=== PATIENT | female | born 1930 | race Caucasian/White ===

== ENCOUNTER 2019-03-11 21:09 | Inpatient (IN) | payer OTHER, MEDICARE ==
--- OUTSIDE RECORDS SUMMARY | 2019-03-11 21:11 | XMS REPORT ---
:1930 [facility] Address [address] [place] [address] [address]. [address] [place] [address] Care Team Providers Name Role Phone Unavailable Unavailable Unavailable Payers Payer Name Policy Type Policy Number Effective Date Expiration Date Problems This patient has no known problems. Allergies, Adverse Reactions, Alerts Allergy Name Allergy Status Severity Reaction(s) Onset Inactive Treating Comments Type Date Date Clinician Sulfa DA Active U 2008-04 (Sulfonamide 2-21 Antibiotics) 00:00: 00 No Known DA Active [place] 2008-04 Intolerances 2-21 00:00: 00 Medications This patient has no known medications.
[2019-03-11 21:53] LABS: Protime INR 0.95
[2019-03-11 21:55] LABS: Absolute Lymphocytes (CBC) 1.8 K/uL (0.7-4.9); Basophils % 0.4 % (0-1.3); Hematocrit 35.4 % (36.0-45.0); Lymphocytes % 14.2 % (15.3-44.8); MPV 8.6 fL (7.6-11.3); RBC Red Blood Cell Count 3.78 M/uL (3.86-4.86)
[2019-03-11 22:20] LABS: ALT/SGPT 28 U/L (12-78); AST/SGOT 38 U/L (15-37); Albumin 3.3 g/dL (3.4-5.0); Alkaline Phosphatase 48 U/L (45-117); BUN Blood Urea Nitrogen 23 mg/dL (7-18); Bicarbonate 27 mmol/L (21-32); Bilirubin Direct < 0.1 mg/dL (0-0.2); Bilirubin Total 0.2 mg/dL (0.2-1.0); Glucose Level 166 mg/dL (74-106); Lipase 222 U/L (73-393); Magnesium 2.2 mg/dL (1.8-2.4); Potassium 4.3 mmol/L (3.5-5.1); Protein, Total 6.7 g/dL (6.4-8.2); Sodium Level 141 mmol/L (136-145); Troponin (Emerg Dept Use Only) < 0.02 ng/mL (0.0-0.045)
--- NOTE | 2019-03-11 22:41 | RAD REPORT ---
EXAM DESCRIPTION: Haydee Single View03/11/2019 10:07 pm CLINICAL HISTORY: Abdominal pain COMPARISON: none FINDINGS: A few areas of scarring or subsegmental atelectasis are present within the right upper lob e The left lung appears clear The heart is normal size
[2019-03-11 23:46] LABS: Urine Blood TRACE (NEG); Urine Glucose NEGATIVE (NEG); Urine Protein NEGATIVE (NEG); Urine Specific Gravity 1.025 (1.005-1.030)
[2019-03-11 23:46] LABS: Urine Bacteria >50 /HPF (<20); Urine Culture Reflex Order REFLEXED
[2019-03-11 23:47] LABS: Urine RBC <5 /HPF (NONE SEEN)
[2019-03-12] MEDS ORDERED: CEFTRIAXONE/SWI 1gm 1 GM/10 ML SYR ONE (01:27)
--- NOTE | 2019-03-12 01:53 | ER ---
Nurse's Notes [facility] Name: Yamileth Gibbons Age: 88 yrs Sex: Female : 1930 Arrival Date: 03/11/2019 Time: 21:15 Bed 15 Private MD: Diagnosis: acute left flank pain;hydroureter;hydronephrosis Presentation: 03/11 21:00 Presenting complaint: EMS states: Reported feeling n/v and severe abdominal and back ea pain. Family reports possible syncopal episode. Transition of care: patient was not received from another setting of care. Onset of symptoms was March 11, 2019. Risk Assessment: Do you want to hurt yourself or someone else? Patient reports no desire to harm self or others. Initial Sepsis Screen: Does the patient meet any 2 criteria? No. Patient's initial sepsis screen is negative. Does the patient have a suspected source of infection? No. Patient's initial sepsis screen is negative. Care prior to arrival: 22 G to left AC, Toradol 25 mg, Phenergan 12.5 mg. 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 - Social history:: Smoking status: Patient/guardian denies using tobacco. - Ebola Screening: : No symptoms or risks identified at this time. - Family history:: not pertinent. - History obtained from: daughter. Screenin:26 Abuse screen: Denies threats or abuse. Nutritional screening: No deficits noted. ea Tuberculosis screening: No symptoms or risk factors identified. Fall Risk None identified. Assessment: 21:00 General: Appears in no apparent distress. Behavior is calm, cooperative, appropriate ea for age. Pain: Complains of pain in back. Neuro: Level of Consciousness is awake, alert, obeys commands, Oriented to person, place. Cardiovascular: Patient's skin is warm and dry. Respiratory: Airway is patent Respiratory effort is even, unlabored, Respiratory pattern is regular, symmetrical. GI: Bowel sounds present X 4 quads. Abd is soft and non tender X 4 quads. Derm: Skin is fragile, Skin is dry, Skin is pale. Musculoskeletal: Circulation, motion, and sensation intact. 22:00 Reassessment: Patient and/or family updated on plan of care and expected duration. Pain ea level reassessed. Patient is alert, oriented x 3, equal unlabored respirations, skin warm/dry/pink. 23:00 Reassessment: Patient and/or family updated on plan of care and expected duration. Pain ea level reassessed. Patient is alert, oriented x 3, equal unlabored respirations, skin warm/dry/pink. 03/12 00:00 Reassessment: Pt resting with eyes closed, respirations even and unlabored. Chest ea expansions even and symmetrical. Daughter remains at bedside. 02:40 Reassessment: Patient and/or family updated on plan of care and expected duration. Pain ea level reassessed. Patient is alert, oriented x 3, equal unlabored respirations, skin warm/dry/pink. Hospitalist at bedside updating pt on plan of care. Vital Signs: 03/11 21:40 BP 114 / 45; Pulse 72; Resp 18; Temp 98.7; Pulse Ox 99% on R/A; Weight 58.97 kg; Height ea 5 ft. (152.40 cm); 03/12 00:26 BP 130 / 64; Pulse 74; Resp 18; Temp 98.9(O); Pulse Ox 99% ; ea 01:00 BP 135 / 72; Pulse 74; Resp 18; Pulse Ox 100% ; ea 02:00 BP 130 / 86; Pulse 85; Resp 18; Pulse Ox 97% ; ea 02:55 Temp 98.8; ea 03:30 BP 128 / 78; Pulse 78; Resp 18; Pulse Ox 99% ; ea 04:15 BP 130 / 78; Pulse 72; Resp 18; Temp 98.1; Pulse Ox 99% on R/A; ea 03/11 21:40 Body Mass Index 25.39 (58.97 kg, 152.40 cm) ea ED Course: 03/11 21:00 Patient has correct armband on for positive identification. Bed in low position. Call ea light in reach. Side rails up X2. Adult w/ patient. 21:00 Maintain EMS IV. Dressing intact. Good blood return noted. Site clean \T\ dry. Gauge \T\ ea site: 22G left AC. 21:15 Patient arrived in ED. ds1 21:19 Vladimir Patterson MD is Attending Physician. wa 21:26 Triage completed. ea 21:27 Arm band placed on right wrist. 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 21:45 Farrah Briseno RN is Primary Nurse. ea 22:02 XRAY Chest (1 view) In Process Unspecified. EDMS 22:08 CT Abd/Pelvis - Without Contrast In Process Unspecified. EDMS 23:26 Straight cath inserted, using sterile technique, 16 Fr. Specimen obtained. Returned ea cloudy urine. Patient tolerated well. 1211 01:50 Michelle Majano MD is Hospitalizing Provider. wa 02:41 No provider procedures requiring assistance completed. Patient admitted, IV remains in ea place. Administered Medications: 01:35 Drug: Rocephin - (cefTRIAXone) 1 grams Route: IVPB; Infused Over: 30 mins; Site: left ea antecubital; 03:54 Drug: Zofran 4 mg Route: IVP; Site: left antecubital; ea 04:10 Follow up: Response: No adverse reaction ea Outcome: 01:52 Decision to Hospitalize by Provider. wa 02:41 Instructed on the need for admit. ea 04:27 Admitted to Med/surg accompanied by tech, via stretcher, with chart, Report called to tom Robles RN 04:27 Condition: stable 04:28 Patient left the ED. ea Signatures: Dispatcher [employer] [facility] Linda Celis ds1 Farrah Briseno RN RN ea Appiah, William, MD MD nc
--- NOTE | 2019-03-12 01:53 | EDPHYS ---
Physician Documentation [facility] Name: Yamileth Gibbons Age: 88 yrs Sex: Female : 1930 Arrival Date: 03/11/2019 Time: 21:15 Bed 15 Private MD: ED Physician Vladimir Patterson HPI: 03/12 01:41 This 88 yrs old Female presents to ER via EMS with complaints of Abdominal wa Pain, Back Pain. 01:41 The patient presents with pain that is acute, with no known mechanism of injury. The wa symptoms are located in the left flank. 02:51 Onset: The symptoms/episode began/occurred today. The pain radiates to the left lower wa abd. Associated signs and symptoms: Pertinent positives: nausea, vomiting, Pertinent negatives: chest pain, fever, headache, hematuria. The problem was sustained from unknown cause. Modifying factors: The patient symptoms are alleviated by nothing, the patient symptoms are aggravated by nothing. Severity of symptoms: At their worst the symptoms were moderate, in the emergency department the symptoms have improved, moderately. The patient has experienced a previous episode, and the symptoms today are exactly the same, dx'd with UTI and "kidney blockage". The patient has not recently seen a physician. 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 - Social history:: Smoking status: Patient/guardian denies using tobacco. - Ebola Screening: : No symptoms or risks identified at this time. - Family history:: not pertinent. - History obtained from: daughter. ROS: 03/12 02:53 Constitutional: Negative for fever, chills, and weight loss, Eyes: Negative for injury, wa pain, redness, and discharge, ENT: Negative for injury, pain, and discharge, Neck: Negative for injury, pain, and swelling, Cardiovascular: Negative for chest pain, palpitations, and edema, Respiratory: Negative for shortness of breath, cough, wheezing, and pleuritic chest pain, MS/Extremity: Negative for injury and deformity, Skin: Negative for injury, rash, and discoloration, Neuro: Negative for headache, weakness, numbness, tingling, and seizure, Psych: Negative for depression, anxiety, suicide ideation, homicidal ideation, and hallucinations. Abdomen/GI: Positive for abdominal pain, nausea and vomiting, of the left flank, Negative for diarrhea. Back: Positive for flank pain, on the left. : Positive for flank pain, of the left flank, Negative for urinary symptoms, urinary frequency, burning with urination. Exam: 02:55 Constitutional: This is a well developed, well nourished patient who is awake, alert, wa and in no acute distress. Head/Face: Normocephalic, atraumatic. Eyes: Pupils equal round and reactive to light, extra-ocular motions intact. Lids and lashes normal. Conjunctiva and sclera are non-icteric and not injected. Cornea within normal limits. Periorbital areas with no swelling, redness, or edema. ENT: Nares patent. No nasal discharge, no septal abnormalities noted. Tympanic membranes are normal and external auditory canals are clear. Oropharynx with no redness, swelling, or masses, exudates, or evidence of obstruction, uvula midline. Mucous membranes moist. Neck: Trachea midline, no thyromegaly or masses palpated, and no cervical lymphadenopathy. Supple, full range of motion without nuchal rigidity, or vertebral point tenderness. No Meningismus. Chest/axilla: Normal chest wall appearance and motion. Nontender with no deformity. No lesions are appreciated. Cardiovascular: Regular rate and rhythm with a normal S1 and S2. No gallops, murmurs, or rubs. Normal PMI, no JVD. No pulse deficits. Respiratory: Lungs have equal breath sounds bilaterally, clear to auscultation and percussion. No rales, rhonchi or wheezes noted. No increased work of breathing, no retractions or nasal flaring. Skin: Warm, dry with normal turgor. Normal color with no rashes, no lesions, and no evidence of cellulitis. MS/ Extremity: Pulses equal, no cyanosis. Neurovascular intact. Full, normal range of motion. Neuro: Awake and alert, GCS 15, oriented to person, place, time, and situation. Cranial nerves II-XII grossly intact. Motor strength 5/5 in all extremities. Sensory grossly intact. Cerebellar exam normal. Normal gait. Psych: Awake, alert, with orientation to person, place and time. Behavior, mood, and affect are within normal limits. 02:55 Abdomen/GI: Inspection: abdomen appears normal, Bowel sounds: normal, in all quadrants, Palpation: abdomen is soft and non-tender, in all quadrants. 02:55 Back: pain, that is moderate, CVA tenderness, is absent. 02:55 : CVA tenderness, is absent. Vital Signs: 03/11 21:40 BP 114 / 45; Pulse 72; Resp 18; Temp 98.7; Pulse Ox 99% on R/A; Weight 58.97 kg; Height ea 5 ft. (152.40 cm); 03/12 00:26 BP 130 / 64; Pulse 74; Resp 18; Temp 98.9(O); Pulse Ox 99% ; ea 01:00 BP 135 / 72; Pulse 74; Resp 18; Pulse Ox 100% ; ea 02:00 BP 130 / 86; Pulse 85; Resp 18; Pulse Ox 97% ; ea 02:55 Temp 98.8; ea 03:30 BP 128 / 78; Pulse 78; Resp 18; Pulse Ox 99% ; ea 04:15 BP 130 / 78; Pulse 72; Resp 18; Temp 98.1; Pulse Ox 99% on R/A; ea 03/11 21:40 Body Mass Index 25.39 (58.97 kg, 152.40 cm) ea MDM: 03/11 21:19 Patient medically screened. or 03/12 02:55 Differential diagnosis: r/o pyelo. kidney stones. obstruction. give meds IV. labs. CT. wa reassess. Data reviewed: vital signs, nurses notes. 02:57 Test interpretation: by ED physician or midlevel provider: labs noted for hyperglycemia wa at 166. elevated BUN at 23. WBC elevated at 13. UA noted positive nitrite. >50 bacteria.. Test interpretation: by ED physician or midlevel provider: CT shows L side hydronephrosis and hydroureter.. Response to treatment: the patient's symptoms have markedly improved after treatment. 03/11 21:31 Order name: Basic Metabolic Panel; Complete Time: 03/11 21: Order name: CBC with Diff; Complete Time: 03/11 21:31 Order name: Hepatic Function; Complete Time: 03/11 21:31 Order name: Lipase; Complete Time: 03/11 21: Order name: Magnesium; Complete Time: 03/11 21:31 Order name: PT-INR; Complete Time: 01:24 or 03/11 21:31 Order name: Troponin (emerg Dept Use Only); Complete Time: :24 or 03/11 21:31 Order name: XRAY Chest (1 view); Complete Time: 01:24 or 03/11 21:32 Order name: CT Abd/Pelvis - Without Contrast or 03/11 21:32 Order name: Urine Microscopic Only; Complete Time: 01:24 or 03/11 23:34 Order name: Urine Dipstick--Ancillary (enter results); Complete Time: 01:23 [facility] 03/11 23:52 Order name: Urine Culture [facility] 03/12 01:45 Order name: Urine Culture or 03/12 04:27 Order name: CBC with Automated Diff [facility] 03/11 21:31 Order name: IV Saline Lock; Complete Time: 21:32 or 03/11 21:31 Order name: Labs collected and sent; Complete Time: 21:32 or 03/11 21:31 Order name: EKG; Complete Time: :32 or 03/11 21:31 Order name: Cardiac monitoring; Complete Time: 21:32 or 03/11 21:31 Order name: EKG - Nurse/Tech; Complete Time: 22:23 or 03/11 21:31 Order name: O2 Per Protocol; Complete Time: :32 or 03/11 21:31 Order name: O2 Sat Monitoring; Complete Time: 21:32 or 03/11 21:32 Order name: Urine Dipstick-Ancillary (obtain specimen); Complete Time: 01:35 or Administered Medications: 01:35 Drug: Rocephin - (cefTRIAXone) 1 grams Route: IVPB; Infused Over: 30 mins; Site: left ea antecubital; 03:54 Drug: Zofran 4 mg Route: IVP; Site: left antecubital; ea 04:10 Follow up: Response: No adverse reaction ea Disposition: 03/12/19 01:52 Hospitalization ordered by Michelle Majano for Inpatient Admission. Preliminary diagnosis are acute left flank pain, hydroureter, hydronephrosis. - Bed requested for Telemetry/MedSurg (Inpatient). - Status is Inpatient Admission. ea - Condition is Stable. - Problem is new. - Symptoms have improved. UTI on Admission? Yes Signatures: Dispatcher [employer] EDMS Krystin Blankenship RN RN mw Antunez, Elena, RN RN ea Appiah, William, MD MD wa Corrections: (The following items were deleted from the chart) 02:37 01:52 Hospitalization Ordered by Michelle Majano MD for Inpatient Admission. Preliminary mw diagnosis is acute left flank pain; hydroureter; hydronephrosis. Bed requested for Telemetry/MedSurg (Inpatient). Status is Inpatient Admission. Condition is Stable. Problem is new. Symptoms have improved. UTI on Admission? Yes. or 04:28 02:37 03/12/2019 01:52 Hospitalization Ordered by Michelle Majano MD for Inpatient ea Admission. Preliminary diagnosis is acute left flank pain; hydroureter; hydronephrosis. Bed requested for Telemetry/MedSurg (Inpatient). Status is Inpatient Admission. Condition is Stable. Problem is new. Symptoms have improved. UTI on Admission? Yes.
[2019-03-12] MEDS ORDERED: ACETAMINOPHEN 500 MG TAB PO PRN (03:37)
[2019-03-12] MEDS ORDERED: POLYETHYL GLY 3350 17 GM/DOSE PO PRN (03:37)
[2019-03-12] MEDS ORDERED: HYDROCODONE/APAP 5/325 MG TAB PO PRN (03:37)
[2019-03-12] MEDS ORDERED: ONDANSETRON 4 MG/2 ML VIAL IV PRN (03:37)
--- NOTE | 2019-03-12 03:44 | P.HP ---
Certification for Inpatient Patient admitted to: Observation With expected LOS: <2 Midnights Patient will require the following post-hospital care: None Practitioner: I am a practitioner with admitting privileges, knowledge of patient current condition, hospital course, and medical plan of care. Services: Services provided to patient in accordance with Admission requirements found in Title 42 Section 412.3 of the Code of Federal Regulations Patient History Date of Service: 03/12/19 Reason for admission: LEFT BACK PAIN History of Present Illness: Yamileth Gibbons is a 88yoF w/ pmhx of CVA and OA who presents w/ intractable unrelenting left flank pain x 24hrs. she reports similar episodes but this episode is different based on duration of pain. she reports N/V and change in color of her urine. she denies blood in her urine. on ED sign out, she is reported to have left hydronephrosis and urology was consulted - Dr. Eubanks per sign out. she denies tobacco/drugs/etoh/BATISTA/CP/SOB/fever, chills, dizziness. she lives alone, is ambulatory, and completes all her ADLs alone. Allergies No Known Allergies Allergy (Unverified 03/12/19 03:09) - Past Medical/Surgical History -: CVA -: ARTHRITIS - Social History Smoking Status: Never smoker Alcohol use: No CD- Drugs: No Review of Systems General: Weakness Eyes: Unremarkable ENT: Unremarkable Respiratory: Unremarkable Cardiovascular: Unremarkable Gastrointestinal: Nausea, Vomiting Genitourinary: As per HPI Musculoskeletal: Neck Pain Integumentary: Unremarkable Neurological: Unremarkable (+left flank pain ) Physical Examination - Physical Exam General: Alert, In no apparent distress, Oriented x3, Cooperative, Other ( appears uncomfortable, but not ill or toxic. a/ox3, NAD, conversational, interactive, frail, slender, well groomed. ) HEENT: EOMI Neck: Supple Respiratory: Clear to auscultation bilaterally, Normal air movement Cardiovascular: No edema, Regular rate/rhythm Capillary refill: <2 Seconds Gastrointestinal: Normal bowel sounds, Soft and benign, Distended (mildly) Musculoskeletal: No clubbing, No swelling Neurological: Other (gait not tested) External genitalia: Deferred Rectal: Deferred - Studies Laboratory Data (last 24 hrs) 03/11/19 21:15: PT 11.2, INR 0.95 03/11/19 21:15: WBC 13.0 H, Hgb 11.7 L, Hct 35.4 L, Plt Count 230 03/11/19 21:15: Sodium 141, Potassium 4.3, BUN 23 H, Creatinine 0.95, Glucose 166 H, Magnesium 2.2, Total Bilirubin 0.2, AST 38 H, ALT 28, Alkaline Phosphatase 48, Lipase 222 Assessment and Plan - Plan 88 yoF admitted w/ left hydronephrosis and UTI (+nitrite and bacteria) obtain ur cx c/w IVF and IV abx NPO except ice chips trend WBC and obtain a1c, tsh, lipid panel obtain procal awaiting CT report - imaging completed urology consulted in the ED- will f/u w/ POC stent, nephrostomy tube, etc uti plan as above monitor I/Os DVT ppx - SCDs - Advance Directives Does patient have a Living Will: Yes Does patient have a Durable POA for Healthcare: No
[2019-03-12 04:13] LABS: Absolute Lymphocytes (CBC) 1.4 K/uL (0.7-4.9); Basophils % 0.1 % (0-1.3); Lymphocytes % 8.3 % (15.3-44.8); MPV 8.1 fL (7.6-11.3); RBC Red Blood Cell Count 3.89 M/uL (3.86-4.86)
[2019-03-12 04:26] LABS: Protime INR 1.02
[2019-03-12] MEDS: NA CHLORIDE 0.9% 1,000 ML IV SCH ×2 (04:30→15:59)
[2019-03-12 04:42] VITALS: BMI 22.4
[2019-03-12 05:24] LABS: Albumin 3.6 g/dL (3.4-5.0); Bilirubin Total 0.4 mg/dL (0.2-1.0); Magnesium 2.7 mg/dL (1.8-2.4); Potassium 4.8 mmol/L (3.5-5.1); Protein, Total 7.3 g/dL (6.4-8.2); Thyroid Stimulating Hormone 0.79 uIU/mL (0.360-3.740)
[2019-03-12] MEDS: MORPHINE 2 MG/ML SYR IV PRN ×2 (05:32→23:41)
--- NOTE | 2019-03-12 06:01 | EKG ---
Test Date: 2019-03-11 Test Time: 21:41:56 Director Medical: LAYO MEASUREMENT RESULTS: Intervals: Rate: 71 VT: 134 QRSD: 74 QT: 376 QTc: 408 Thompson: P: 56 VT: 134 QRS: 62 T: 73 INTERPRETIVE STATEMENTS: Normal sinus rhythm Normal ECG No previous ECG available for comparison Electronically Signed On 03-12-19 06:00:35 CAKE ICER by Yossi James
[2019-03-12] MEDS: CEFTRIAXONE/SWI 1gm 1 GM/10 ML SYR IV SCH (09:25)
[2019-03-12] MEDS: DOCUSATE NA 100 MG CAP PO SCH ×2 (09:25→21:27)
--- NOTE | 2019-03-12 10:49 | RAD REPORT ---
EXAM DESCRIPTION: CT - Abdomen Pelvis Wo Contrast - 03/12/2019 5:58 am CLINICAL HISTORY: L side abd/flank pain COMPARISON: None Available. TECHNIQUE: CT of the abdomen and pelvis without IV contrast. Evaluation of the solid organs and vasc ulature is suboptimal due to lack of IV contrast. FINDINGS: Lung Bases: Coarse calcification in the left lung base may represent a granuloma. Bones: Degenerative endplate spondylosis and facet arthropathy throughout the spine. Abdomen: Liver: The liver has normal size and density. Gallbladder: Prior cholecystectomy. Spleen, Pancreas, and Adrenal Glands: The spleen, pancreas, and adrenal glands are unremarkable. 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 No obstructing roshni al calculus definitely identified. Cystic structure involving the interpolar right kidney which is in completely evaluated due to lack of IV contrast. Nonobstructing left renal calculus. Vasculature: Aortoiliac atherosclerosis. IVC is unremarkable. Stomach: The stomach and duodenum have normal course. Other: No free intraperitoneal air. Moderate fat-containing ventral hernia. No free fluid or lympha denopathy. Pelvis: Bladder: Tiny foci of air in the urinary bladder. No urinary bladder wall thickening identified. Bowel: No dilated loops of large or small bowel. Scattered diverticula of the colon. Large amount s tool throughout the colon. Appendix: Normal appendix. Pelvis: Uterus is not enlarged. Tiny fat-containing left inguinal hernia. IMPRESSION: 1. 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 No obstructing calculi identifi ed. No evidence of lower pole moiety hydronephrosis. 2. Punctate nonobstructing left nephrolithiasis. 3. Diverticulosis without evidence of acute diverticulitis. 4. Punctate foci of air in the urinary bladder may be related to recent catheterization. Urinary blad jamie is otherwise unremarkable. This exam was performed according to our departmental dose-optimization program, which includes autom ated exposure control, adjustment of the mA and/or kV according to patient size and/or use of iterati ve reconstruction technique. 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 The interpreting radiologist is f ully responsible for the content of the report.
--- NOTE | 2019-03-12 19:37 | CON ---
88-year-old female with past medical history of stroke, osteoarthritis, came with intractable unrelenting left flank pain x24 hours. She reports similar episodes of this before, approximately 4-5 years ago when she was admitted for IV antibiotics, got better. She went home. 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 In looking at the CT scan, it does look like the left upper pole is hydronephrotic, most likely nonfunctional, probably has been that way chronically. My concern was if this was infected or not. First, we talked about doing a cysto stent to drain the kidney, but once I got more information that this is a duplicated system with most likely a nonfunctional upper pole moiety and that this episode of infection happened before and she got better on IV antibiotics, I decided best to go ahead and treat her with IV antibiotics for 2-3 days until the culture comes back and then send her home. We will go ahead and place a Ocampo catheter, however, in the bladder to drain the infection out. 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 She has had previous vaginal closure surgery for a cystocele. She denies any tobacco socially. She denies tobacco, smoking, alcohol use. Review of Systems: She denies fevers or chills or dizziness. She lives at home. 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 Does all her ADLs on her own, very active for age. Allergies: NO KNOWN DRUG ALLERGIES. Past Medical History: CVA, arthritis. Social History: Never smoked. Alcohol use none. Drug use none. Review of Systems: General: Some weakness. Unremarkable for age. Physical Examination: Vital Signs: She had a low-grade temperature today 100 plus. General: She is alert, oriented. Family very supportive. Her son and daughter in the room and her son-in-law. HEENT: Atraumatic. Normocephalic. Neck: Supple. Respiratory: Clear. Cardiovascular: S1, S2. Capillary refill less than 2 seconds. Gastrointestinal: Normal. Musculoskeletal: Normal. Neurologic: Normal. : External genitalia deferred. Lab Studies: PT 11, INR 0.9. White count was elevated today 16.5, up from 13, 000 yesterday. H and H 12 and 36, platelet count 230. Coagulation as mentioned. Chemistry: Sodium 141, potassium 4.8, chloride 108, carbon dioxide 28, BUN 22, creatinine 0.97, GFR 54, glucose 135, magnesium 2.7, AST 52. 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 Question was whether the upper pole moiety is infected versus the lower pole moiety. However, based on her history of having the same similar symptoms for 5 years ago, intravenous antibiotics to care for everything. She has not had one in 4-5 years. We wish to go ahead and try the same for her. We will place a Ocampo catheter to drain the infected urine out of her bladder, remove that in a few days. She will go home once the culture comes back. May also do a renal scan to document the duplicated collecting system as well as possible assess the function of the left lower pole moiety for any possible pyelonephritis. BON/AHMET Voice ID: [id number] Report ID: [id number] SONJA
[2019-03-13] MEDS: NA CHLORIDE 0.9% 1,000 ML IV SCH ×2 (02:09→14:10)
[2019-03-13] MEDS ORDERED: FUROSEMIDE 40 MG/4 ML VIAL ONE (05:56)
[2019-03-13] MEDS: CEFTRIAXONE/SWI 1gm 1 GM/10 ML SYR IV SCH (07:58)
[2019-03-13] MEDS: DOCUSATE NA 100 MG CAP PO SCH ×2 (07:58→22:08)
[2019-03-13] MEDS ORDERED: HYDROCODONE/APAP 7.5/325 MG TAB PO PRN (08:52)
[2019-03-13] MEDS ORDERED: TRAMADOL HCL 50 MG TAB PO PRN (08:52)
--- NOTE | 2019-03-13 08:57 | RAD REPORT ---
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 COMPARISON: Abdomen Pelvis Wo Contrast dated 03/11/2019 TECHNIQUE: Following intravenous administration of mCi Tc99m MAG-3, posterior dynamic angiogram an d sequential static images of the kidneys were obtained. mg Lasix was administered intravenously 10 minutes into the study. Static post-void imaging was also performed. FINDINGS: FLOW: There is prompt/symmetric flow to bilateral kidneys. SPLIT FUNCTION: Differential function is 35% on the left and 65% on the right. RENOGRAM AND COLLECTING SYSTEM CLEARANCE: The left kidney appears prominent in size relative to the r ight.. There is moderate left-sided hydronephrosis hydroureter to the level of the left UVJ. Time to peak activity is approximately 9.9min on the left and 5.5min on the right (normal 3-5min). Post-Lasi x time to half (T1/2) is 5.9min on the left and 92min on the right (normal less than 10 minutes). POST VOID: The small volume ofpersistent collecting system activity is noted on post void imaging. P rogressive clearance of collecting system activity within upright posture and voiding. IMPRESSION: Moderate left hydronephrosis and hydroureter is present to the level of the left UVJ wit h slow clearance over time post Lasix suggesting moderate grade anatomic obstruction is present.
[2019-03-13] MEDS ORDERED: DOCUSATE NA 100 MG CAP PO SCH (09:00)
--- NOTE | 2019-03-13 10:48 | P.PN ---
Subjective Date of Service: 03/13/19 Chief Complaint: LEFT BACK PAIN Physical Examination - Vital Signs Temperature: 99.9 F Blood Pressure: 134/62 Pulse: 82 Respirations: 18 Pulse Ox (%): 96 - Studies Microbiology Data (last 24 hrs): 03/11/19 23:20 Clean Catch Urine Roxton Count - Final >100,000 CFU/ML. 03/11/19 23:20 Clean Catch Urine - Final Escherichia Coli Assessment & Plan Physician Review Additional Text: Plan of care addressed with patient and family. Patient desires to establish care in the area. Spoke to Dr. France who will take over care of patient and resume her care in the hospital. Time Spent Managing Pts Care (In Minutes): 25
[2019-03-13 12:25] LABS: Absolute Lymphocytes (CBC) 1.7 K/uL (0.7-4.9); Basophils % 0.2 % (0-1.3); Lymphocytes % 8.5 % (15.3-44.8); MPV 8.4 fL (7.6-11.3); RBC Red Blood Cell Count 3.97 M/uL (3.86-4.86)
[2019-03-13] MEDS: AMPICILLIN/SULBACT 3 GM in NA CHLORIDE 0.9% 100 ML IVPB SCH ×2 (13:26→17:16)
[2019-03-13 13:40] LABS: Blood Morphology Comment NOT SEEN (NOT SEEN); Platelet Estimate ADEQ
[2019-03-13] MEDS ORDERED: ASPIRIN 325 MG TAB PO SCH (21:00)
[2019-03-13] MEDS ORDERED: MAGNESIUM HYDROXIDE 8% 30 ML PO SCH (21:00)
[2019-03-14] MEDS: AMPICILLIN/SULBACT 3 GM in NA CHLORIDE 0.9% 100 ML IVPB SCH ×3 (00:48→17:18)
[2019-03-14] MEDS: NA CHLORIDE 0.9% 1,000 ML IV SCH (01:05)
--- NOTE | 2019-03-14 01:27 | PN ---
Date of Progress Note: 03/13/2019 History: Patient was seen this evening and today was the first time I saw this patient. During the course of day today, Dr. Strange contacted me as he knows this patient personally and requested me t o see if I will be willing to take over her care while in the hospital and subsequently hospitalist karina fan contacted me with the same request and I did agree to take over patient's care. I have reviewed current hospital records and this evening I talked to patient and her son who was at bedside. As I u jennifer, the patient has been in [facility]. 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 in [place] and she has recovered very well from this stroke without any neurological deficit. She has some arthritis, trouble walking, and she uses the cane, especially when she goes outside. In 2014, she had multiple episodes of either urinary tract infection or kidney infections as she descri bed, and then she was diagnosed as having cystocele for which she had surgery done in 2014. After at, she has not had any more infection problem. Past weekend, about 4 days ago she started to have l eft flank pain and pain continued. On Sunday, which is 2 days ago, she started to have fever, nause a, vomiting and she passed out at home so 911 was called and she was brought here to the emergency ro and after she was evaluated she was admitted to the hospital with urinary tract infection problem. After she was admitted, IV fluid, IV antibiotic, which was ceftriaxone was started and Dr. Eubanks [facility]rology was consulted. She continues to have low-grade fever and white count has continued to go up. Today, white count is up to 25,000. She denies any dysuria or hematuria. At home, she takes as pirin regularly. Ever since her stroke, she is not taking any statin therapy and she was told that h er cholesterol was slightly high, but did not need to take it according to her physician from [place] as she tells me. Recently, she was prescribed a Medrol Dosepak for some cervical radiculopathy type of pain. Currently, she is not on any steroid medication. Objective: Vital Signs: Reviewed. HEENT: Unremarkable. Lungs: Clear to auscultation. Heart: Heart sounds normal. Abdomen: Soft, bowel sounds normal. No guarding, rigidity, tenderness, or distention. Extremities: No leg edema. Laboratory Data: Reviewed. Urine culture growing E coli. Impression: 1.Acute pyelonephritis. 2.Stroke. 3.Hyperlipidemia. 4.Osteoarthritis, multiple sites. 5.Generalized weakness. 6.Debility. Plan: We will go ahead and discontinue ceftriaxone and start the patient on Unasyn as per order. IV fluid will be continued per order. We will repeat blood work tomorrow. DVT prophylaxis will be giv en per order. Physical Therapy to help ambulate the patient. I will see her tomorrow for followup. 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 I did talk to her about different medications like Lyrica, amitriptyline or duloxetine and she is willing to try it. So, we will consider low-dose amitriptyline. She is also willing to consider statin therapy and we will start this treatment at appropriate time. We will see her tomorrow morning for followup. LINDSEY/MODL Voice ID: [id number] Report ID: [id number]
[2019-03-14 05:07] LABS: Absolute Lymphocytes (CBC) 1.4 K/uL (0.7-4.9); Basophils % 0.1 % (0-1.3); Hematocrit 32.4 % (36.0-45.0); Lymphocytes % 9.5 % (15.3-44.8); MPV 8.2 fL (7.6-11.3); RBC Red Blood Cell Count 3.52 M/uL (3.86-4.86)
[2019-03-14 05:19] LABS: BUN Blood Urea Nitrogen 12 mg/dL (7-18); Bicarbonate 25 mmol/L (21-32); Glucose Level 116 mg/dL (74-106); Potassium 3.4 mmol/L (3.5-5.1); Sodium Level 142 mmol/L (136-145)
[2019-03-14] MEDS: DOCUSATE NA 100 MG CAP PO SCH (09:19)
[2019-03-14] MEDS ORDERED: ENOXAPARIN 30 MG/0.3 ML SQ ONE (12:00)
[2019-03-14] MEDS ORDERED: POTASSIUM CL SA 10 MEQ TAB PO ONE (12:00)
--- NOTE | 2019-03-14 12:21 | PN ---
The patient is feeling well. Urine is clear. We will go ahead and discontinue her catheter today. Her white count was elevated to 20,000, so we will keep the patient on IV antibiotics. She has some left flank pain. Her renal scan was done, but it was misinterpreted. I believe she has a nonfunctio esperanza left upper pole with no obstruction of the left lower pole. On the right, it was slow excretion . I have discussed the renal scan results with Dr. Garcia, who agrees that there is no obstruction . There is delayed emptying of the right collecting system, so we will continue conservative managem ent and see if the IV antibiotics will help. BON/AHMET Voice ID: [id number] Report ID: [id number]
[2019-03-14 16:17] VITALS: BP 177/76; TEMP 98.4
--- NOTE | 2019-03-14 16:41 | PN ---
Ms. Gibbons is doing well today. Her T-max is 99.1, pulse 79, respirations 17, BP 156/70. The patient has been able to walk in the [place]. She still needs some physical therapy. So, she should be going t o a [facility] care facility. There, she should continue her p.o. antibiotics. Her culture did grow E coli, that was pansensitive. So, she can get Bactrim or Levaquin or ciprofloxacin as an outp atient for 2 weeks total, including the inpatient treatment and follow up p.r.n. BON/AHMET Voice ID: [id number] Report ID: [id number]
[2019-03-14 16:59] VITALS: O2SAT 90
--- NOTE | 2019-03-14 18:20 | PN ---
Date of Progress Note: 03/14/2019 Subjective: Patient was seen this morning for followup. Her son was present with her at bedside. S he ambulated with physical therapy using walker. Objective: Vital Signs: Reviewed. HEENT: Unremarkable. Lungs: Clear to auscultation. Heart: Sounds normal. Abdomen: Soft. Bowel sounds normal. No guarding, rigidity, tenderness, or distention. Extremities: No leg edema. Laboratory Data: White count 15.1, hemoglobin 11, platelets 185. Sodium 142, potassium 3.4, chlorid e 113, bicarb 25, BUN 12, creatinine 0.62, glucose 116. Impression: 1.Acute pyelonephritis. 2.Hypokalemia. 3.Anemia, unspecified. Plan: Patient is responding well to current IV antibiotic, which was changed yesterday. We will con tinue this current IV antibiotics. Discontinue IV fluid. Physical therapy to continue to work with the patient. Social service was consulted for discharge planning to go to fdc facility, if inpatient rehab does not except the patient. I did talk to patient and the patient's son about po ssibility of going up to fifth floor for inpatient rehab stay for therapy and they both are willing t o consider that if the patient gets accepted, so I have requested that evaluation. The patient gets excepted to inpatient rehab, she is stable for transfer. LINDSEY/MODL Voice ID: [id number] Report ID: [id number]
[2019-03-15] MEDS ORDERED: ENOXAPARIN 30 MG/0.3 ML SQ SCH (09:00)
--- NOTE | 2019-03-16 00:25 | DS ---
Date of Discharge: 03/14/2019 Disposition: Discharged to go to inpatient rehab. For physical exam, see copy of today's progress note for details. Final Diagnoses: 1. Acute pyelonephritis. 2. Stroke. 3. Hyperlipidemia. 4. Osteoarthritis, multiple sites. 5. Generalized weakness. 6. Debility. 7. Anemia. 8. Hypokalemia. 9. Impaired fasting glucose. 10. Diverticulosis. Laboratory Data: Labs done during this hospitalization: Urine culture grew E coli. Initial white count 13, hemoglobin 11.7, platelets 230 on 03/11/2019. Highest white count on 03/13/2019 was 20.2, and last white count today 15.1 with hemoglobin 11, platelets 185. Initial chemistry on 03/11/2019: Sodium 141 , potassium 4.3, chloride 108, bicarb 27, BUN 23, creatinine 0.95, glucose 166. Liver function tests unremarkable except SGOT 38. Procalcitonin less than 0.05, TSH 0.79. Last chemistry today sodium 142, potassium 3.4, chloride 113, bicarb 25, BUN 12, creatinine 0.62, glucose 116. Hemoglobin A1c 5.8. On 2018, fasting glucose was 135. Urine culture has grown E coli. 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 No obstructing calculi identified. Punctate known obstructing left nephrolithiasis. Diverticulosis without evidence of diverticulitis. Renal scan showed that there was no anatomic obstruction. Hospital Course: This is an 88-year-old very pleasant female patient who was admitted to the hospital and I was requested to take over her care. I took over her care as of March 13, 2019, and changed her antibiotics. She was on ceftriaxone from the time of admission, but when I saw her white count had gone up to 20,000, so I changed it to Unasyn according to urine culture result. Her white count has started to go down with change in antibiotics. Physical therapy was consulted. Patient has started to work with therapies. She has significant debility, generalized weakness, with this recent acute infectious illness. She has significant arthritis and uses either a cane or a walker at home. We had talked about discharge planning and disposition and recommended inpatient rehab consultation and after patient was evaluated except today by inpatient rehab, she was discharged to go to rehab in stable medical condition where I will continue to follow up with her. Urology consultation from Dr. Eubanks was obtained and he did not recommend any further intervention except giving antibiotics as we are doing so at present time. Patient has some tingling, numbness, and pain in her both lower extremities from knee all the way down to her toes. This is chronic in nature for last 4 years ever since she had a stroke and she has tried some medications in the past and that did not help, but while in the hospital with use of SCD, her symptoms has resolved completely, so we will continue to use that. Discharge Medications And Instructions: See copy of transfer order for more details and we will continue all current medication orders while she is on rehab floor. LINSDEY/AHMET Voice ID: [id number] Report ID: [id number] MTDAntoni
== END 2019-03-14 18:45 | DRG 690 ==
LOC: ER 21:09 → INTOOBSV 03-12 02:11 → OBSVTOIN 03-12 02:11 → ERHOLD 03-12 02:11 → 2ND 03-12 04:09 → OBSVTOIN 03-13 16:18
PROVIDERS: ADMIT Internal Medicine; ATTEND Internal Medicine
DX: N10 Acute pyelonephritis (principal); B96.20 Unspecified Escherichia coli [E. coli] as the cause of diseases classified elsewhere; Z86.73 Personal history of transient ischemic attack (TIA), and cerebral infarction without residual deficits; E78.5 Hyperlipidemia, unspecified; M19.90 Unspecified osteoarthritis, unspecified site; R53.1 Weakness; R53.81 Other malaise; D64.9 Anemia, unspecified; E87.6 Hypokalemia; R73.01 Impaired fasting glucose; K57.90 Diverticulosis of intestine, part unspecified, without perforation or abscess without bleeding; Q64.8 Other specified congenital malformations of urinary system
CPT/HCPCS: 36415; 51702; 71045; 74176; 78708; 80048; 80053; 80076; 81003; 81015; 83036; 83690; 83735; 84145; 84443; 84484; 85025; 85610; 87077; 87086; 87088; 87186; 93005; 96374; 96375; 97116; 97161; 97166; 97530; 99285; A9562; G0378; J0295; J0696; J1650; J1940; J2270; J2405; J7030

== ENCOUNTER 2019-03-14 15:20 | Inpatient (IN) | payer OTHER, MEDICARE ==
--- NOTE | 2019-03-14 17:19 | R.PREADM ---
SCREENING DATE AND TIME 03/14/2019 15:25 (ART GLASS DESIGNER) ANTICIPATED REHAB ADMISSION DATE 03/16/2019 REFERRING FACILITY [facility] REFERRAL DATE AND TIME 03/14/2019 15:25 (ART GLASS DESIGNER) REFERRAL OFFICE PHONE [phone] REFERRAL ROOM# [id number] ACUTE ADMIT DATE 03/13/2019 Previous Rehabilitation(s): No. 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 Brian Oliva M.D. MR# [id number] NAME YAMILETH WHITE ADDRESS [address] [place] [address] PHONE [facility] [id number] DATE OF 1930 AGE 88 SSN# [id number] GENDER female MARITAL STATUS RACE white ADMIT FROM 02 - [facility] PRE-HOSPITAL LIVING SETTING 01 - Home (private home/apt. board/care, assisted living, alf, transitional living) HOME TYPE AND DETAILS Type of home: single family house # of levels in the residence: 1 # of steps to enter the residence: 0 # of steps within the residence: 0 PRE-HOSPITAL LIVING WITH Alone FAMILY SUPPORT Yes PRIMARY FAMILY CONTACT NAME Mary Gomez PRIMARY FAMILY CONTACT PHONE PRIMARY FAMILY CONTACT RELATIONSHIP Spouse PHONE PRIMARY FAMILY CONTACT ON ADM.? no IS PRIMARY FAMILY CONTACT AUTH. REP.? no 1ST EMERGENCY CONTACT Mary Gomez 1ST CONTACT PHONE 1ST CONTACT RELATIONSHIP Spouse PHONE 1ST CONTACT ON ADM. no IS 1ST CONTACT AUTH. REP.? no PHONE 2ND CONTACT ON ADM.? no PATIENT EMPLOYMENT STATUS Retired (for age) PATIENT EMPLOYER No Employer PAYOR INFORMATION: 1ST PAYOR NAME MEDICARE 1ST PAYOR PHONE [phone] 1ST PAYOR INJURY/ILLNESS DUE TO ACCIDENT? No ANOTHER REPUBLICAN RESPONSIBLE? No PRIMARY REHAB/ACUTE DIAGNOSIS: Left Hydronephrosis/Sepsis ONSET DATE 03/13/2019 REHAB IMPAIRMENT CATEGORY (GEMA): 20 Miscellaneous (Misc) does NOT meet 60% rule PRIMARY DIAGNOSIS-RELATED SURGERIES: No surgeries related to the primary diagnosis were performed. COMORBID REHAB/ACUTE DIAGNOSES: - N/A CVA Arthritis SUMMARY OF ACUTE HOSPITALIZATION: Pt. is a 88 yo Right-handed white female. On 03/13/2019 she was admitted to [facility] with diagnosis Left Hydronephrosis /Sepsis. Her impairment category is Debility 16 - Debility (16). Pre-morbidly, Pt. was independent/mod-I in Locomotion, Safety Awareness, Balance, Social Cognition, T ransfers Control, Sphincter Control, Self-Care, Endurance, and Communication; and she had good Locomo tion, Balance, Transfers Control, Self-Care, and Endurance. Currently, she has deficits of Locomotion, Balance, Transfers Control, Self-Care, and Endurance. Pt. is now referred to [facility] for acute in-patient rehabilitation in order to maximize patient's functional independence in activities of daily living, strength, ROM, and mobi lity. Patient has realistic goal of being discharged at assistance level 6-Alejandro to reside at Home with Pt selfAnna White is an 88 year old female that lives alone in a single declan house. 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 On 03/13/2019, patient has retractable unrelenting left flank pain and was admitted to [facility] and treated. She is now medically stable but in need of 24-hour nursing, doctor supervision and oversite while receiving participate in 3hours of therapy a day/15 hours per week and receive care with an intensive interdisciplinary approach. PAST MEDICAL HISTORY Arthritis CVA MEDICATION ALLERGIES: No Known Drug Allergies (NKDA) ENVIRONMENTAL ALLERGIES: None Known - Substance Allergies None Known - Other Allergies None Known CODE STATUS: Full code WEIGHT/HEIGHT/BMI: WEIGHT 135 lbs HEIGHT 5' 5" BMI 22.5 DIET: - Diet Type Regular - Diet - Solid Texture Regular - Diet - Liquid Texture Regular - Tube Feed N/A REVIEW OF SYSTEMS: - Gen Alert and awake Lying in bed No apparent distress Oriented to: person, time, and place - Vital Signs Temperature: 98.1 F SBP/DBP: 142/67 Pulse: 85 Resp: 16 Vital signs stable, afebrile - CVS RRR VITAL SIGNS Temperature: 98.1 F SBP/DBP: 142/67 Pulse: 85 Resp: 16 Vital signs stable, afebrile MEDICATIONS/TREATMENT: Other- See attached MAR (Medication Administration Record). See attached MAR (Medication Administration Record) Yamileth White.pdf. CURRENT SPHINCTER CONTROL: Pre-hospital bladder status: continent # of bladder accidents in the last 7 days prior to screenin Pre-hospital bowel status: continent # of bowel accidents in the last 7 days prior to screenin Last Bowel Movement Date: 03/14/2019 CURRENT LOCOMOTION STATUS: distance walked 530 feet DETAILED CURRENT FUNCTIONAL STATUS: - Bladder accident frequency: Ind - No accidents in the past 7 days - Bowel accident frequency: Ind - No accidents in the past 7 days - Walking score based on distance walked: 0(N/A) score based on distance walked: 3(>=150ft) - Wheelchair score based on distance traveled: 0(N/A) QI SCORES: - Self-Care A. Eating 05-Setup or clean-up assistance B. Oral hygiene 05-Setup or clean-up assistance C. Toileting hygiene 03-Partial/moderate assistance E. Shower/bathe self 03-Partial/moderate assistance F. Upper body dressing 03-Partial/moderate assistance G. Lower body dressing 03-Partial/moderate assistance H. Putting on/taking off footwear 03-Partial/moderate assistance - Mobility A. Roll left and right 03-Partial/moderate assistance B. Sit to lying 03-Partial/moderate assistance C. Lying to sitting on side of bed 03-Partial/moderate assistance D. Sit to stand 04-Supervision or touching assistance E. Chair/[id number] transfer 04-Supervision or touching assistance F. Toilet transfer 04-Supervision or touching assistance G. Car transfer 88-Not attempted due to medical condition or safety concerns I. Walk 10 feet 04-Supervision or touching assistance J. Walk 50 feet with two turns 04-Supervision or touching assistance K. Walk 150 feet 04-Supervision or touching assistance L. Walking 10 feet on uneven surfaces 88-Not attempted due to medical condition or safety concerns M. 1 step (curb) 88-Not attempted due to medical condition or safety concerns N. 4 steps 88-Not attempted due to medical condition or safety concerns O. 12 steps 88-Not attempted due to medical condition or safety concerns P. Picking up object 88-Not attempted due to medical condition or safety concerns R. Wheel 50 feet with two turns 88-Not attempted due to medical condition or safety concerns S. Wheel 150 feet 88-Not attempted due to medical condition or safety concerns - Bladder and Bowel Bladder continence 9-Not applicable Bowel continence 0-Always continent - Endurance Fair - Balance Fair - Safety Awareness Fair CURRENT FUNC. DEFICITS: Self-Care, Mobility, Endurance, Balance, and Safety Awareness CURRENT / PREVIOUS ASSISTIVE DEVICES: 3-in-1 Commode [employer] [facility] Hospital Bed Rolling Walker Shower Chair Tub Bench CURRENT USE ASSISTIVE DEVICES: SCDs TEDs HISTORY OF FALLS. HAS THE PATIENT HAD TWO OR MORE FALLS IN THE PAST YEAR OR ANY FALL WITH INJURY IN T HE PAST YEAR?: No PRIOR SURGERY. DID THE PATIENT HAVE MAJOR SURGERY DURING THE 100 DAYS PRIOR TO ADMISSION?: No THERAPY NOTES FROM ACUTE CARE: Attached. SPECIAL NEEDS: - Safety Concerns Skin breakdown precautions needed due to skin breakdown risk PATIENT NEEDS ACTIVE AND ONGOING THERAPEUTIC INTERVENTION OF MULTIPLE THERAPY DISCIPLINES, INCLUDING: - Dietary and Nutrition Adequate Nutrition. Nutritional Education. Nutritional Supplements. PATIENT NEEDS CLOSE MEDICAL SUPERVISION BY A REHABILITATION PHYSICIAN FOR: Coordination of Treatment Team Medical and Co-Morbidity Management PATIENT REQUIRES 24X7 REHAB NURSING FOR MEDICAL AND FUNCTIONAL MGT. OF THE FOLLOWING DEFICITS: Disease Management Medication Management Patient/Family Education Providing Safe Environment PATIENT REQUIRES INTENSIVE, COORDINATED INTERDISCIPLINARY APPROACH TO REHAB: Arranging Home Equipment/Services Discharge Planning Family Intervention/Training Manager Performance/Case Management PATIENT REHAB POTENTIAL: Ming WHITE is able and expected to receive 3 hours of individualized therapy daily on at least 5 of ever y 7 days Ming RAYMONDs prognosis for significant practical improvement within a reasonable period of time appears Good Expected level of measurable improvement will be of a practical value to Ming WHITE's functional capacit y or adaptations to impairments Has a viable Discharge Plan Medically appropriate; condition is sufficiently stable to participate in intensive rehab program DISCHARGE PLAN: - Estimated Length of Stay (days) 13. - Consensus on plan Discharge plan has been discussed with primary caregiver. Patient/Family is in agreement with the brady n. Primary caregiver is in agreement with the plan. - Patient/Family Goals Return home with assistance. - Planned Living Setting Upon Discharge Home, to live alone. Transitional Living. Primary caregiver: Pt self. RECOMMENDED CARE LEVEL: IRF RECOMMENDATION DETAILS: Recommended Admission to Comprehensive Rehabilitation Program to Increase Functional [place] SCREENER'S COMPLETENESS CONFIRMATION: - Screening Confirmation The patient data collection on this preadmission screening form is finished PHYSICIANS REVIEW AND ADMISSION DETERMINATION Admit - Based on my review of the Pre-Admission Screening results, in my medical judgment and experie nce, I concur with the findings and recommend admission to [facility], as this patient requires an IRF level of care. SIGNATURE PANEL: Clinical Liaison - [electronically] signed by Marlin Lugo on 03/14/2019 at 16:28 (ART GLASS DESIGNER) Physician Reviewer - [electronically] signed by Dr. Brian Oliva M.D. on 03/14/2019 at 17:19 (ART GLASS DESIGNER )
--- OUTSIDE RECORDS SUMMARY | 2019-03-14 19:02 | XMS REPORT ---
:1930 Author Organization [facility] Address [address] [place] [address] Care Team Providers Name Role Phone Unavailable Unavailable Unavailable Payers Payer Name Policy Type Policy Number Effective Date Expiration Date Problems This patient has no known problems. Allergies, Adverse Reactions, Alerts Allergy Name Allergy Status Severity Reaction(s) Onset Inactive Treating Comments Type Date Date Clinician Sulfa DA Active U 2008-04 (Sulfonamide 2-21 Antibiotics) 00:00: [address] 2008-04 Intolerances 2-21 00:00: 00 Medications This patient has no known medications.
[2019-03-14] MEDS ORDERED: ONDANSETRON 4 MG/2 ML VIAL IV PRN (20:16)
[2019-03-14] MEDS ORDERED: HYDROCODONE/APAP 7.5/325 MG TAB PO PRN (20:16)
[2019-03-14] MEDS ORDERED: POLYETHYL GLY 3350 17 GM/DOSE PO PRN (20:16)
[2019-03-14] MEDS ORDERED: TRAMADOL HCL 50 MG TAB PO PRN (20:16)
[2019-03-14] MEDS ORDERED: MORPHINE 2 MG/ML SYR IV PRN (20:16)
[2019-03-14] MEDS: MAGNESIUM HYDROXIDE 8% 30 ML PO SCH (21:00)
[2019-03-14] MEDS: ASPIRIN 325 MG TAB PO SCH (21:00)
[2019-03-14] MEDS: AMPICILLIN/SULBACT 3 GM in NA CHLORIDE 0.9% 100 ML IVPB SCH (23:00)
[2019-03-15 03:44] LABS: Urine Appearance CLOUDY; Urine Bilirubin NEGATIVE (NEG); Urine Blood 1+ (NEG); Urine Color YELLOW; Urine Glucose NEGATIVE (NEG); Urine Protein 1+ (NEG); Urine Urobilinogen 0.2 mg/dL (0.2-1.0)
[2019-03-15 04:31] LABS: Urine Bacteria 20-50 /HPF (<20); Urine Culture Reflex Order REFLEXED; Urine Mucus 2+ /HPF (NONE SEEN)
[2019-03-15 06:42] LABS: Absolute Lymphocytes (CBC) 1.4 K/uL (0.7-4.9); Basophils % 0.1 % (0-1.3); Hematocrit 32.2 % (36.0-45.0); Lymphocytes % 14.4 % (15.3-44.8); MPV 8.1 fL (7.6-11.3)
[2019-03-15] MEDS: ACETAMINOPHEN 500 MG TAB PO PRN ×3 (06:49→20:22)
[2019-03-15 07:00] LABS: Albumin 2.4 g/dL (3.4-5.0); BUN Blood Urea Nitrogen 8 mg/dL (7-18); Bicarbonate 25 mmol/L (21-32); Glucose Level 105 mg/dL (74-106); HDL Cholesterol 23 mg/dL (40-60); LDL Cholesterol, Calculated 99 (<130); Magnesium 2.3 mg/dL (1.8-2.4); Potassium 3.6 mmol/L (3.5-5.1); Prealbumin 10.9 mg/dL (20-40); Sodium Level 141 mmol/L (136-145)
[2019-03-15] MEDS: ENOXAPARIN 30 MG/0.3 ML SQ SCH (07:22)
[2019-03-15] MEDS: DOCUSATE NA 100 MG CAP PO SCH ×2 (07:23→20:20)
[2019-03-15] MEDS: AMPICILLIN/SULBACT 3 GM in NA CHLORIDE 0.9% 100 ML IVPB SCH ×3 (07:51→22:27)
[2019-03-15] MEDS ORDERED: GABAPENTIN 100 MG CAP PO ONE (12:00)
--- NOTE | 2019-03-15 16:19 | R.HP ---
FACILITY: [facility] ENCOUNTER DATE AND TIME: 03/15/2019 16:12 (HAND I BLOCKER) MR#: [id number] NAME YAMILETH WHITE ADDRESS: [address] [place] [address]: [place]IP [id number] PHONE: DATE OF : 1930 AGE: 88 SSN# [id number] GENDER: Female DEXTERITY Right-handed MARITAL STATUS RACE White PRE-HOSPITAL LIVING SETTING 01 - Home (private home/apt. board/care, assisted living, [place] [facility], transitional living) PRE-HOSPITAL LIVING WITH Alone ENCOUNTER PHYSICIAN: Dr. Brian Oliva M.D. REFERRING DOCTOR: yeimi France DATE OF ADMISSION: 03/15/2019 16:13 (Central Standard Time) REFERRING FACILITY [facility] HOME TYPE AND DETAILS: Type of home: single family house # of levels in the residence: 1 # of steps to enter the residence: 0 # of steps within the residence: 0 ADMISSION DIAGNOSIS: Left Hydronephrosis/Sepsis ONSET DATE: 03/13/2019 PRIMARY DIAGNOSIS-RELATED SURGERIES: No surgeries related to the primary diagnosis were performed. SECONDARY/COMORBID DIAGNOSES (TIERED): - N/A CVA Arthritis HISTORY OF PRESENT ILLNESS (HPI): Pt. is a 88 yo Right-handed white female. On 03/13/2019 she was admitted to [facility] with diagnosis Left Hydronephrosis /Sepsis. Her impairment category is Debility 16 - Debility (16). Pre-morbidly, Pt. was independent/mod-I in Locomotion, Safety Awareness, Balance, Social Cognition, T ransfers Control, Sphincter Control, Self-Care, Endurance, and Communication; and she had good Locomo tion, Balance, Transfers Control, Self-Care, and Endurance. Currently, she has deficits of Locomotion, Balance, Transfers Control, Self-Care, and Endurance. Pt. is now referred to [facility] for acute in-patient rehabilitation in order to maximize patient's functional independence in activities of daily living, strength, ROM, and mobi lity. Patient has realistic goal of being discharged at assistance level 6-Alejandro to reside at Home with Pt self. Yamileth White is an 88 year old female that lives alone in a single declan house. 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 On 03/13/2019, patient has retractable unrelenting left flank pain and was admitted to [facility] and treated. She is now medically stable but in need of 24-hour nursing, doctor supervision and oversite while receiving participate in 3hours of therapy a day/15 hours per week and receive care with an intensive interdisciplinary approach. She has intermittent left facial pain after her stroke 4 years ago. Her pain worsened significantly a fter she had left ear cleaning. Pain is sharp, stabbing, pulsating and brief but recurrent and worse at night. MEDICATION ALLERGIES: No Known Drug Allergies (NKDA) ENVIRONMENTAL ALLERGIES: None Known - Substance Allergies None Known - Other Allergies None Known PAST MEDICAL HISTORY: Arthritis CVA FAMILY HISTORY: Family history is not contributory. SOCIAL HISTORY: - Home Living Alone REVIEW OF SYSTEMS: - Gen No Chills Fatigue No Fever Severe left facial pain. - Eyes No Double Vision No itchiness - ENMT No Difficulty Swallowing - CVS No Chest Discomfort No Chest Pain Fatigue No Weight Gain - Resp No Cough No Shortness of Breath - GI Continent No Abdominal Pain No Constipation No Diarrhea - Continent No Kidney Pain No Painful Urination No Urinary Urgency - MSK No Joint Pain No Muscle Cramps Stiffness - Skin No Itching No Rash No Suspicious Lesions - Neuro Coordination Difficulty No Difficulty with Concentration No Memory Loss No Seizures Weakness - Psych No Anxiety No Depression No HIV Exposure No Persistent Infections No Seasonal Allergies - Endo No Cold/Heat Intolerance No Excessive Hunger No Excessive Thirst No Excessive Urination PHYSICAL EXAM - Gen Alert and awake Lying in bed No apparent distress Oriented to: person, time, and place - Skin No skin breakdown. No abnormalities - Eyes No abnormalities - ENMT No abnormalities - Neck No abnormalities - CVS RRR - Chest No abnormalities - Resp Clear to auscultation - Abd Soft - GI + bowel sounds Deferred - No abnormalities - Ext No significant edema - MSK 4/5 weakness in both lower extremities. - Neuro 4/5 strength bilaterally lower extremities. - Psych No abnormalities VITAL SIGNS Temperature: 98.1 F SBP/DBP: 142/67 Pulse: 85 Resp: 16 NURSING: - Shower allowing shower ACTIVITIES OOB only with supervision QI SCORES: - Self-Care A. Eating 05-Setup or clean-up assistance B. Oral hygiene 05-Setup or clean-up assistance C. Toileting hygiene 03-Partial/moderate assistance E. Shower/bathe self 03-Partial/moderate assistance F. Upper body dressing 03-Partial/moderate assistance G. Lower body dressing 03-Partial/moderate assistance H. Putting on/taking off footwear 03-Partial/moderate assistance - Mobility A. Roll left and right 03-Partial/moderate assistance B. Sit to lying 03-Partial/moderate assistance C. Lying to sitting on side of bed 03-Partial/moderate assistance D. Sit to stand 04-Supervision or touching assistance E. Chair/[id number] transfer 04-Supervision or touching assistance F. Toilet transfer 04-Supervision or touching assistance G. Car transfer 88-Not attempted due to medical condition or safety concerns I. Walk 10 feet 04-Supervision or touching assistance J. Walk 50 feet with two turns 04-Supervision or touching assistance K. Walk 150 feet 04-Supervision or touching assistance L. Walking 10 feet on uneven surfaces 88-Not attempted due to medical condition or safety concerns M. 1 step (curb) 88-Not attempted due to medical condition or safety concerns N. 4 steps 88-Not attempted due to medical condition or safety concerns O. 12 steps 88-Not attempted due to medical condition or safety concerns P. Picking up object 88-Not attempted due to medical condition or safety concerns R. Wheel 50 feet with two turns 88-Not attempted due to medical condition or safety concerns S. Wheel 150 feet 88-Not attempted due to medical condition or safety concerns - Bladder and Bowel Bladder continence 9-Not applicable Bowel continence 0-Always continent - Endurance Fair - Balance Fair - Safety Awareness Fair CURRENT FUNC. DEFICITS: Self-Care, Mobility, Endurance, Balance, and Safety Awareness MEDICATIONS: - Other See attached MAR (Medication Administration Record) See attached MAR (Medication Administration Record) Yamileth White.pdf ASSESSMENT: Pt. is a 88 yo Right-handed white female.On 03/13/2019 she was admitted to [facility] with diagnosis Left Hydronephrosis/Sepsis.Her impairment category is Debility 16 - Debility ( 16).Pre-morbidly, Pt. was independent/mod-I in Locomotion, Safety Awareness, Balance, Social Cognitio n, Transfers Control, Sphincter Control, Self-Care, Endurance, and Communication; and she had good Lo comotion, Balance, Transfers Control, Self-Care, and Endurance.Currently, she has deficits of Locomot ion, Balance, Transfers Control, Self-Care, and Endurance.Pt. is now referred to [facility] for acute in-patient rehabilitation in order to maximize patient's functional independe nce in activities of daily living, strength, ROM, and mobility.- Rehab Goal Patient has realistic goal of being discharged at assistance level 6-Alejandro to reside at Home with Pt self. Yamileth White is an 88 year old female that lives alone in a single declan house. 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 On 03/13/2019, patient has retractable unrelenting left flank pain and was admitted to [facility] and treated. She is now medically stable but in need of 24-hour nursing, doctor supervision and oversite while receiving participate in 3hours of therapy a day/15 hours per week and receive care with an intensive interdisciplinary approach.REHAB PLAN: - Physical Therapy Gait dysfunction - to improve, our physical therapists will perform initial evaluation of pt's status upon admission and devise an individualized program for Gait Training, and Wheel Chair mobility Inability to transfer - to improve, our physical therapists will perform initial evaluation of pt's s tatus upon admission and devise an individualized program for Bed mobility Need for home safety evaluation - to improve, our physical therapists will perform initial evaluation of pt's status upon admission and devise an individualized program for Home Evaluation Need in caregiver upon discharge - to improve, our physical therapists will perform initial evaluatio n of pt's status upon admission and devise an individualized program for Caregiver Training New precaution - to improve, our physical therapists will perform initial evaluation of pt's status u aron admission and devise an individualized program for Patient precaution education Edema - to improve, our physical therapists will perform initial evaluation of pt's status upon admi ssion and devise an individualized program for Elevation Training, and Lymphedema Therapy Poor balance - to improve, our physical therapists will perform initial evaluation of pt's status upo n admission and devise an individualized program for Balance Training Poor endurance - to improve, our physical therapists will perform initial evaluation of pt's status u aron admission and devise an individualized program for Endurance Training Weakness - to improve, our physical therapists will perform initial evaluation of pt's status upon ad mission and devise an individualized program for Aquatic Therapy, Neuromuscular Reeducation, and Stre ngthening Achieving independence - to improve, our physical therapists will perform initial evaluation of pt's status upon admission and devise an individualized program for Community Reintegration Activities - Occupational Therapy ADL deficits - to improve, our occupation therapists will perform initial evaluation of pt's status u aron admission and devise an individualized program for Bathing, Bed mobility, Community Reintegration , Cooking, Dressing, Eating, Fine Motor Skills, Grooming, Homemaking, Kitchen Mobility, Laundry, Cynthia ent Education, Safety Awareness, Splinting - Positioning, Transfers(Toilet, Tub, Shower), and Wheel C hair Management Need for healthcare sales representative - to improve, our occupation therapists will perform initial evaluation of pt's s tatus upon admission and devise an individualized program for Caregiver Training Weakness - to improve, our occupation therapists will perform initial evaluation of pt's status upon admission and devise an individualized program for Aquatic Therapy, Balance, Endurance, UE ROM, and U E strengthening MEDICAL PLAN: - Diet Type Start Regular - Diet - Liquid Texture Start Regular - Tube Feed Start N/A - Other See attached MAR (Medication Administration Record) See attached MAR (Medication Administration Record) Yamileth White.pdf - Diet - Solid Texture Regular - Shower shower DISCHARGE PLAN: - Estimated Length of Stay (days) 13. - Consensus on plan Discharge plan has been discussed with primary caregiver. Patient/Family is in agreement with the brady n. Primary caregiver is in agreement with the plan. - Patient/Family Goals Return home with assistance. - Planned Living Setting Upon Discharge Home, to live alone. Transitional Living. Primary caregiver: Pt self. SIGNATURE PANEL: (HAND I BLOCKER)
--- NOTE | 2019-03-15 16:21 | PAPE ---
PATIENT: [facility] MR# [id number] REFERRING DOCTOR yeimi France EVALUATION DATE AND TIME 03/15/2019 16:19 (INFORMATION TECHNOLOGY TEACHER) NAME NBA WHITE DATE OF 1930 AGE 88 PHONE N# [id number] GENDER female EVALUATING PHYSICIAN Dr. Brian Oliva M.D. ADMISSION DIAGNOSIS: Left Hydronephrosis/Sepsis ONSET DATE 03/13/2019 SECONDARY/COMORBID DIAGNOSES TIERED: - N/A CVA Arthritis POST-ADMISSION FUNCTIONAL/MEDICAL STATUS: - Bladder Same accident frequency: Ind - No accidents in the past 7 days - Bowel Same accident frequency: Ind - No accidents in the past 7 days - Walking Same score based on distance walked: 0(N/A) Same score based on distance walked: 3(>=150ft) - Wheelchair Same score based on distance traveled: 0(N/A) STATUS CHANGE EVALUATION: No change in Functional or Medical Status is identified compared with Pre-Admission screening. PATIENT NEEDS CLOSE MEDICAL SUPERVISION BY A REHABILITATION PHYSICIAN FOR: Coordination of Treatment Team Medical and Co-Morbidity Management PATIENT REQUIRES 24X7 REHAB NURSING FOR MEDICAL AND FUNCTIONAL MGT. OF THE FOLLOWING DEFICITS: Disease Management Medication Management Patient/Family Education Providing Safe Environment PATIENT REQUIRES INTENSIVE, COORDINATED INTERDISCIPLINARY APPROACH TO REHAB: Arranging Home Equipment/Services Discharge Planning Family Intervention/Training Chief Lock Operator/Case Management LIST OF IDENTIFIED AND POTENTIAL PROBLEMS: Alteration in leisure activities Bladder, Incontinence Bowel, Incontinence Infection, Actual or Potential Mobility Impaired Pain, Alteration in Comfort Self Care Deficit Skin Integrity, Actual or Potential Urinary Tract Infection (UTI), Actual or Potential PATIENT COULD BE AT RISK FOR COMPLICATIONS FROM ADVERSE MEDICAL CONDITIONS DUE TO HIS/HER COMORBIDITI ES AND THE RIGORS OF THE INTENSIVE REHABILLITATION PROGRAM. METHODS OR INTERVENTIONS TO AVOID COMPLIC ATIONS INCLUDE: - Infection Clinical staff to assess and manage the signs and symptoms of infection including fever, redness, war mth, etc. - Urinary Tract Infection - Falls Patient will be evaluated for Fall Precautions and will be placed on Fall Precautions as indicated pe r protocol. - Skin Breakdown Nursing will assess skin daily using assessment tool and will place on Skin Breakdown Precautions as indicated per protocol. - Pain Clinical staff may employ non-medication methods such as massage, distraction, decrease stimulus, etc . as needed. Clinical staff will assess patient's pain level every shift per protocol to assess and e nsure pain management effectiveness. Medications will be given and the pain level re-assessed. PRELIMINARY PLAN OF CARE: - Physical Therapy Patient needs Physical Therapy for a daily minimum of 1.5 hours at least 5 out of 7 days, to improve: Mobility, Strengthening, Transfers, Stretching, ROM, Endurance, Ability to manage stairs, Gait, and Balance. - Speech Therapy Patient needs Speech Therapy for a daily minimum of 0.5 hours at least 5 out of 7 days, to improve: S wallowing, Cognition, Language Skills, and Compensatory Strategies. - Rehabilitation Nursing Patient requires 24x7 Rehabilitation Nursing for: Pain Issues, Identifying and preventing risk factor s, Monitoring and reporting current medical conditions, Assisting with ambulation and transfer, Annmarie ting with all ADL-s, Teaching patients about disease process and medications, Family teaching, Provid ing safe environment, Bowel and Bladder Issues, Skin Integrity, and Medication Management. Patient needs Chief Lock Operator and/or Case Management for: Discharge Planning, Arranging Home Equipmen t or Services, and Family Interventions. - Dietary and Nutrition Services Patient needs Dietary and Nutrition Services for: Adequate Nutrition, Nutritional Supplements, and Nu tritional Education. - Occupational Therapy Patient needs Occupational Therapy for a daily minimum of 1.5 hours at least 5 out of 7 days, to impr ove Activities of Daily Living, including: Eating, Grooming, Bathing, Dressing, Toileting, Toilet Tra nsfers, Community Reintegration, Higher functional activities, Adaptive Equipment, Splinting, Househo ld Tasks, and Other activities as determined. QI SCORES: - Self-Care A. Eating 05-Setup or clean-up assistance B. Oral hygiene 05-Setup or clean-up assistance C. Toileting hygiene 03-Partial/moderate assistance E. Shower/bathe self 03-Partial/moderate assistance F. Upper body dressing 03-Partial/moderate assistance G. Lower body dressing 03-Partial/moderate assistance H. Putting on/taking off footwear 03-Partial/moderate assistance - Mobility A. Roll left and right 03-Partial/moderate assistance B. Sit to lying 03-Partial/moderate assistance C. Lying to sitting on side of bed 03-Partial/moderate assistance D. Sit to stand 04-Supervision or touching assistance E. Chair/jjj-qa-iwqmh transfer 04-Supervision or touching assistance F. Toilet transfer 04-Supervision or touching assistance G. Car transfer 88-Not attempted due to medical condition or safety concerns I. Walk 10 feet 04-Supervision or touching assistance J. Walk 50 feet with two turns 04-Supervision or touching assistance K. Walk 150 feet 04-Supervision or touching assistance L. Walking 10 feet on uneven surfaces 88-Not attempted due to medical condition or safety concerns M. 1 step (curb) 88-Not attempted due to medical condition or safety concerns N. 4 steps 88-Not attempted due to medical condition or safety concerns O. 12 steps 88-Not attempted due to medical condition or safety concerns P. Picking up object 88-Not attempted due to medical condition or safety concerns R. Wheel 50 feet with two turns 88-Not attempted due to medical condition or safety concerns S. Wheel 150 feet 88-Not attempted due to medical condition or safety concerns - Bladder and Bowel Bladder continence 9-Not applicable Bowel continence 0-Always continent - Endurance Fair - Balance Fair - Safety Awareness Fair POTENTIAL FUNCTIONAL GOALS FOR PATIENT TO ACHIEVE BY DISCHARGE: - Safety Precaution Patient will remain free from falls or injury at time of discharge. - Bed Mobility Patient will perform bed mobility at 4-Jose level of assistance. - Transfers Patient will complete transfers from bed to chair at 4-Jose level of assistance. - Mobility Patient will ambulate 150 ft with 4-Jose level of assistance with RW. PATIENT REHAB POTENTIAL Ming WHITE is able and expected to receive 3 hours of individualized therapy daily on at least 5 of ever y 7 days Ming RAYMONDs prognosis for significant practical improvement within a reasonable period of time appears Good Expected level of measurable improvement will be of a practical value to Ming WHITE's functional capacit y or adaptations to impairments Has a viable Discharge Plan Medically appropriate; condition is sufficiently stable to participate in intensive rehab program DISCHARGE PLAN: - Estimated Length of Stay (days) 13. - Consensus on plan Discharge plan has been discussed with primary caregiver. Patient/Family is in agreement with the brady n. Primary caregiver is in agreement with the plan. - Patient/Family Goals Return home with assistance. - Planned Living Setting Upon Discharge Home, to live alone. Transitional Living. Primary caregiver: Pt self. CONCLUSION ON REHABILITATION NECESSITY: I have evaluated patient's pre-admission functional status and, comparing it to the patient's post-ad mission functional status now, I conclude that the pre-admission assessment was accurate. Patient's c ondition on admission supports the medical necessity of admission to [facility]. It is safe to proceed with patient's therapy program. SIGNATURE PANEL: (INFORMATION TECHNOLOGY TEACHER)
[2019-03-15] MEDS: carBAMazepine 200 MG TAB PO SCH ×2 (16:35→20:20)
[2019-03-15] MEDS ORDERED: GABAPENTIN 100 MG CAP PO SCH (20:00)
[2019-03-15] MEDS: ASPIRIN 325 MG TAB PO SCH (20:20)
[2019-03-15] MEDS: MAGNESIUM HYDROXIDE 8% 30 ML PO SCH (20:21)
--- NOTE | 2019-03-15 21:04 | PN ---
Date of Progress Note: 03/15/2019 Subjective: Patient was seen this morning for followup. She was on rehab floor, feeling better. No nausea, vomiting. Objective: Vital Signs: Reviewed. HEENT: Unremarkable. Lungs: Clear to auscultation. Heart: Heart sounds normal. Abdomen: Soft, bowel sounds normal. No guarding, rigidity, tenderness, or distention. Extremities: No leg edema. Laboratory Data: White count 9.9, hemoglobin 11, platelets 223. Sodium 141, potassium 3.6, chloride 112, bicarb 25, BUN 8, creatinine 0.61, glucose 105. Impression: 1.Acute pyelonephritis. 2.Hypertension. 3.Hyperlipidemia. 4.Stroke. 5.Osteoarthritis, multiple sites. Plan: We will continue current medications. Continue DVT prophylaxis, antibiotics, which is Unasyn. Patient has a low-grade fever as noted this morning. We will continue to monitor her vital signs f or temperature as well as blood pressure. If necessary, consider blood pressure medications. She is having some discomfort on the left scalp area, which is something she had it in the past, but now in last few days, it is lot more frequent. Her tingling, numbness, and pain from leg problem that she had for last 4-5 years has resolved with use of SCDs, so we will continue that, but for scalp problem , I did talk to her about trying gabapentin and she is willing to try and subsequently Dr. Oliva, called and he suggested that he would like to try Tegretol in place of gabapentin. I will see her tomorrow for followup. LINDSEY/MODL Voice ID: [id number] Report ID: [id number]
[2019-03-16] MEDS: AMPICILLIN/SULBACT 3 GM in NA CHLORIDE 0.9% 100 ML IVPB SCH ×3 (07:03→22:11)
[2019-03-16] MEDS: DOCUSATE NA 100 MG CAP PO SCH ×2 (07:03→20:23)
[2019-03-16] MEDS: ENOXAPARIN 30 MG/0.3 ML SQ SCH (07:03)
[2019-03-16] MEDS: METOPROLOL XL 25 MG TAB PO SCH (09:39)
--- NOTE | 2019-03-16 11:26 | PN ---
Date of Progress Note: 03/16/2019 Subjective: Patient was seen this morning for followup. No new complaints, problems reported by her except her discomfort on the left side of the head, but reported that last night she slept very well and did not have any leg complaints of any headache or any other complaints during nighttime. Objective: Vital Signs: Reviewed. HEENT: Unremarkable. Lungs: Clear to auscultation. Heart: Sounds normal. Abdomen: Soft. Bowel sounds normal. No guarding, rigidity, tenderness, distention. Extremities: No leg edema. Impression: 1.Hypertension. 2.Hyperlipidemia. 3.Stroke. 4.Acute pyelonephritis. Plan: Patient's blood pressure is elevated with systolic blood pressure between 160 to 170. We will go ahead and start her on metoprolol 25 p.o. daily. As per order, I will see her tomorrow for follo wup. Continue other current medications including an IV antibiotics, Unasyn. Her urinalysis upon ad mission to rehab is abnormal and we will follow up with urologist regarding this, as she continues to have abnormal urinalysis in spite of appropriate IV antibiotic therapy at present time. She was see n by Dr. Eubanks on medical floor. LINDSEY/MODL Voice ID: [id number] Report ID: [id number]
[2019-03-16] MEDS: ASPIRIN 325 MG TAB PO SCH (20:23)
[2019-03-16] MEDS: MAGNESIUM HYDROXIDE 8% 30 ML PO SCH (20:23)
[2019-03-16] MEDS: carBAMazepine 200 MG TAB PO SCH (20:23)
[2019-03-17 06:40] LABS: Folic Acid, (Folate) 13.2 ng/mL (3.1-17.5); Thyroid Stimulating Hormone 0.551 uIU/mL (0.360-3.740)
[2019-03-17] MEDS: ENOXAPARIN 30 MG/0.3 ML SQ SCH (07:30)
[2019-03-17] MEDS: AMPICILLIN/SULBACT 3 GM in NA CHLORIDE 0.9% 100 ML IVPB SCH ×3 (07:30→22:30)
[2019-03-17] MEDS: ACETAMINOPHEN 500 MG TAB PO PRN (08:52)
[2019-03-17] MEDS: DOCUSATE NA 100 MG CAP PO SCH ×2 (08:52→20:37)
[2019-03-17] MEDS: METOPROLOL XL 25 MG TAB PO SCH (08:52)
--- NOTE | 2019-03-17 14:12 | FAST ---
SHIFT START DATE/TIME: 03/17/2019 07:00 (CUSTOMER TRAINER) SHIFT END DATE/TIME: 03/17/2019 19:00 (CUSTOMER TRAINER) NAME NBA WHITE DATE OF : 1930 DATE OF ADMISSION: 03/15/2019 16:13 (CUSTOMER TRAINER) PHONE: AGE: 88 N# [id number] GENDER: Female ENCOUNTER PHYSICIAN: Dr. Brian Oliva M.D. ADMISSION DIAGNOSIS: - Debility 16 - Debility (16) Left Hydronephrosis/Sepsis. EATING: EATING - STEP 1: Does the patient complete the activity by him/herself with no assistance (physical, verbal/nonverbal cueing, setup/clean-up)? No. EATING - STEP 2: Does the patient need only setup/clean-up assistance from one helper? Yes. 1. [id number] ADMISSION PERFORMANCE: Setup or clean-up assistance CODE: 05 ORAL HYGIENE: ORAL HYGIENE - STEP 1: Does the patient complete the activity by him/herself with no assistance (physical, verbal/nonverbal cueing, setup/clean-up)? No. ORAL HYGIENE - STEP 2: Does the patient need only setup/clean-up assistance from one helper? Yes. 1. [id number] ADMISSION PERFORMANCE: Setup or clean-up assistance CODE: 05 TOILETING HYGIENE: TOILETING HYGIENE - STEP 1: Does the patient complete the activity by him/herself with no assistance (physical, verbal/nonverbal cueing, setup/clean-up)? No. TOILETING HYGIENE - STEP 2: Does the patient need only setup/clean-up assistance from one helper? Yes. 1. [id number] ADMISSION PERFORMANCE: Setup or clean-up assistance CODE: 05 BATHING: Not assessed/no information CODE: - DRESSING - UPPER BODY: DRESSING - UPPER BODY - STEP 1: Does the patient complete the activity by him/herself with no assistance (physical, verbal/nonverbal cueing, setup/clean-up)? No. DRESSING - UPPER BODY - STEP 2: Does the patient need only setup/clean-up assistance from one helper? Yes. 1. [id number] ADMISSION PERFORMANCE: Setup or clean-up assistance CODE: 05 DRESSING - LOWER BODY: DRESSING - LOWER BODY - STEP 1: Does the patient complete the activity by him/herself with no assistance (physical, verbal/nonverbal cueing, setup/clean-up)? No. DRESSING - LOWER BODY - STEP 2: Does the patient need only setup/clean-up assistance from one helper? No. DRESSING - LOWER BODY - STEP 3: Does the patient need only verbal/nonverbal cueing or touching/steadying/contact guard assistance fro m one helper? Yes. 1. [id number] ADMISSION PERFORMANCE: Supervision or touching assistance CODE: 04 PUTTING ON/TAKING OFF FOOTWEAR: FOOTWEAR - STEP 1: Does the patient complete the activity by him/herself with no assistance (physical, verbal/nonverbal cueing, setup/clean-up)? No. FOOTWEAR - STEP 2: Does the patient need only setup/clean-up assistance from one helper? No. FOOTWEAR - STEP 3: Does the patient need only verbal/nonverbal cueing or touching/steadying/contact guard assistance fro m one helper? Yes. 1. [id number] ADMISSION PERFORMANCE: Supervision or touching assistance CODE: 04 ROLL LEFT AND RIGHT: ROLL LEFT AND RIGHT - STEP 1: Does the patient complete the activity by him/herself with no assistance (physical, verbal/nonverbal cueing, setup/clean-up)? No. ROLL LEFT AND RIGHT - STEP 2: Does the patient need only setup/clean-up assistance from one helper? Yes. 1. [id number] ADMISSION PERFORMANCE: Setup or clean-up assistance CODE: 05 SIT TO LYING: SIT TO LYING - STEP 1: Does the patient complete the activity by him/herself with no assistance (physical, verbal/nonverbal cueing, setup/clean-up)? No. SIT TO LYING - STEP 2: Does the patient need only setup/clean-up assistance from one helper? Yes. 1. [id number] ADMISSION PERFORMANCE: Setup or clean-up assistance CODE: 05 LYING TO SITTING: LYING TO SITTING ON SIDE OF BED - STEP 1: Does the patient complete the activity by him/herself with no assistance (physical, verbal/nonverbal cueing, setup/clean-up)? No. LYING TO SITTING ON SIDE OF BED - STEP 2: Does the patient need only setup/clean-up assistance from one helper? Yes. 1. [id number] ADMISSION PERFORMANCE: Setup or clean-up assistance CODE: 05 SIT TO STAND: SIT TO STAND - STEP 1: Does the patient complete the activity by him/herself with no assistance (physical, verbal/nonverbal cueing, setup/clean-up)? Yes. 1. [id number] ADMISSION PERFORMANCE: Independent CODE: 06 TRANSFERS: BED, CHAIR: CHAIR/[id number] TRANSFER - STEP 1: Does the patient complete the activity by him/herself with no assistance (physical, verbal/nonverbal cueing, setup/clean-up)? No. CHAIR/[id number] TRANSFER - STEP 2: Does the patient need only setup/clean-up assistance from one helper? Yes. 1. [id number] ADMISSION PERFORMANCE: Setup or clean-up assistance CODE: 05 TRANSFER TOILET: TOILET TRANSFER - STEP 1: Does the patient complete the activity by him/herself with no assistance (physical, verbal/nonverbal cueing, setup/clean-up)? No. TOILET TRANSFER - STEP 2: Does the patient need only setup/clean-up assistance from one helper? Yes. 1. [id number] ADMISSION PERFORMANCE: Setup or clean-up assistance CODE: 05 TRANSFERS: CAR: Not assessed/no information CODE: - WALK 10 FEET: Not assessed/no information CODE: - 1 STEP (CURB): Not assessed/no information CODE: - PICKING UP OBJECT: Not assessed/no information CODE: - DOES THE PATIENT USE A WHEELCHAIR/SCOOTER? Q1. DOES THE PATIENT USE A WHEELCHAIR/SCOOTER?: No CODE: 0 INDICATE THE TYPE OF WHEELCHAIR/SCOOTER USED: CODE: EXPR INDICATE THE TYPE OF WHEELCHAIR/SCOOTER USED: CODE: EXPR BLADDER AND BOWEL: H350. BLADDER CONTINENCE (3-DAY ASSESSMENT PERIOD): Always continent (no documented incontinence) CODE: 0 H400. BOWEL CONTINENCE (3-DAY ASSESSMENT PERIOD): Always continent CODE: 0 SIGNATURE PANEL: The following modified sections: 1. [id number] Admission Performance, 1. PM9462e Admission Performance, 1. HL1495t Admission Performance, 1. OG1599s Admission Performance, 1. [id number] Admission Performance, 1. RU9833S Admission Performance, 1. XD6032A Admission Performance, 1. ZZ0100A Admission Performance , 1. NI7821T Admission Performance, 1. [id number] Admission Performance, Q1. Does the patient use a whee lchair/scooter?, H350. Bladder Continence (3-day assessment period), H400. Bowel Continence (3-day as sessment period), 1. [id number] Admission Performance, 1. [id number] Admission Performance were [electronic ally] signed by Aide Jewell C.N.A. on SunMar 17 2019 14:11:02 GMT-0600 (Central Standard Time)
--- NOTE | 2019-03-17 17:30 | R.PN ---
ENCOUNTER DATE AND TIME: 03/17/2019 17:21 (CAREERS ADVISER) NAME YAMILETH WHITE DATE OF : 1930 DATE OF ADMISSION: 03/15/2019 16:13 (CAREERS ADVISER) Left Hydronephrosis/SepsisCHIEF COMPLAINT: Debility, left trigeminal neuralgia SUBJECTIVE: Pt denied any depression. Pt denied any Shortness of Breath. Her left facial pain improved after starting Tegretol 200 mg at night. She ambulated 1000' with stand by assistance using a rolling walker. Labs reviewed and are stable. VITAL SIGNS Temperature: 98.0 F SBP/DBP: 129/63 Pulse: 67 Resp: 16 MEDICATION ALLERGIES: No Known Drug Allergies (NKDA) ENVIRONMENTAL ALLERGIES: None Known - Substance Allergies None Known - Other Allergies None Known NURSING: - Shower allowing shower ACTIVITIES OOB only with supervision THERAPIES: - Dietary and Nutrition Adequate Nutrition. Nutritional Education. Nutritional Supplements. PHYSICAL EXAM - Gen Alert and awake Lying in bed No apparent distress Oriented to: person, time, and place - Skin No skin breakdown. No abnormalities - Eyes No abnormalities - ENMT No abnormalities - Neck No abnormalities - CVS RRR - Chest No abnormalities - Resp Clear to auscultation - Abd Soft - GI + bowel sounds Deferred - No abnormalities - Ext No significant edema - MSK 4/5 weakness in both lower extremities. - Neuro 4/5 strength bilaterally lower extremities. - Psych No abnormalities ASSESSMENT: Pt. is a 88 yo Right-handed white female.On 03/13/2019 she was admitted to [facility] with diagnosis Left Hydronephrosis/Sepsis.Her impairment category is Debility 16 - Debility ( 16).Pre-morbidly, Pt. was independent/mod-I in Locomotion, Safety Awareness, Balance, Social Cognitio n, Transfers Control, Sphincter Control, Self-Care, Endurance, and Communication; and she had good Lo comotion, Balance, Transfers Control, Self-Care, and Endurance.Currently, she has deficits of Locomot ion, Balance, Transfers Control, Self-Care, and Endurance.Pt. is now referred to [facility] for acute in-patient rehabilitation in order to maximize patient's functional independe nce in activities of daily living, strength, ROM, and mobility.- Rehab Goal Patient has realistic goal of being discharged at assistance level 6-Alejandro to reside at Home with Pt self. She has intermittent left facial pain after her stroke 4 years ago. Her pain worsened significantly a fter she had left ear cleaning. Pain is sharp, stabbing, pulsating and brief but recurrent and worse at night.MDM/PLAN: - Physical Therapy Gait dysfunction - to improve, our physical therapists will perform initial evaluation of pt's statu s upon admission and devise an individualized program for Gait Training, and Wheel Chair mobility Inability to transfer - to improve, our physical therapists will perform initial evaluation of pt's status upon admission and devise an individualized program for Bed mobility Need for home safety evaluation - to improve, our physical therapists will perform initial evaluatio n of pt's status upon admission and devise an individualized program for Home Evaluation Need in caregiver upon discharge - to improve, our physical therapists will perform initial evaluati on of pt's status upon admission and devise an individualized program for Caregiver Training Edema - to improve, our physical therapists will perform initial evaluation of pt's status upon admis carson and devise an individualized program for Elevation Training, and Lymphedema Therapy New precaution - to improve, our physical therapists will perform initial evaluation of pt's status upon admission and devise an individualized program for Patient precaution education Poor balance - to improve, our physical therapists will perform initial evaluation of pt's status up on admission and devise an individualized program for Balance Training Poor endurance - to improve, our physical therapists will perform initial evaluation of pt's status upon admission and devise an individualized program for Endurance Training Weakness - to improve, our physical therapists will perform initial evaluation of pt's status upon a dmission and devise an individualized program for Aquatic Therapy, Neuromuscular Reeducation, and Str engthening Achieving independence - to improve, our physical therapists will perform initial evaluation of pt's status upon admission and devise an individualized program for Community Reintegration Activities - Occupational Therapy ADL deficits - to improve, our occupation therapists will perform initial evaluation of pt's status upon admission and devise an individualized program for Bathing, Bed mobility, Community Reintegratio n, Cooking, Dressing, Eating, Fine Motor Skills, Grooming, Homemaking, Kitchen Mobility, Laundry, Pat ient Education, Safety Awareness, Splinting - Positioning, Transfers(Toilet, Tub, Shower), and Wheel Chair Management Need for home care coordinator - to improve, our occupation therapists will perform initial evaluation of pt's status upon admission and devise an individualized program for Caregiver Training Weakness - to improve, our occupation therapists will perform initial evaluation of pt's status upon admission and devise an individualized program for Aquatic Therapy, Balance, Endurance, UE ROM, and UE strengthening - Other See attached MAR (Medication Administration Record) See attached MAR (Medication Administration Record) Yamileth White.pdf See attached MAR (Medication Administration Record) Yamileth White.pdf - Diet Type Continue Regular - Diet - Liquid Texture Continue Regular - Tube Feed Continue N/A - Diet - Solid Texture Continue Regular - Shower allowing shower FUNCTIONAL STATUS: UPDATED AT WEEKLY TEAM CONFERENCE - Bladder Same accident frequency: 7-Ind - No accidents in the past 7 days - Bowel Same accident frequency: 7-Ind - No accidents in the past 7 days - Walking Same score based on distance walked: 0(N/A) Same score based on distance walked: 3(>=150ft) - Wheelchair Same score based on distance traveled: 0(N/A) FUNCTIONAL STATUS: - Self-Care A. Eating Ind B. Grooming Ind C. Bathing Alejandro D. Dressing - Upper Alejandro E. Dressing - Lower sup F. Toileting sup - Sphincter Control G. Bladder control Alejandro H. Bowel control Alejandro - Transfers Control I. Bed/Chair/Wheelchair Alejandro J. Toilet Alejandro K. Tub/Shower sup - Locomotion L. Walk/Wheelchair (B) sup M. Stairs sup - Communication N. Comprehension (B) Alejandro O. Expression (B) Alejandro - Social Cognition P. Social Interaction Ind Q. Problem Solving Ind R. Memory Alejandro - Endurance Good - Balance Good - Safety Awareness Good QI SCORES: - Self-Care A. Eating 05-Setup or clean-up assistance B. Oral hygiene 05-Setup or clean-up assistance C. Toileting hygiene 03-Partial/moderate assistance E. Shower/bathe self 03-Partial/moderate assistance F. Upper body dressing 03-Partial/moderate assistance G. Lower body dressing 03-Partial/moderate assistance H. Putting on/taking off footwear 03-Partial/moderate assistance - Mobility A. Roll left and right 03-Partial/moderate assistance B. Sit to lying 03-Partial/moderate assistance C. Lying to sitting on side of bed 03-Partial/moderate assistance D. Sit to stand 04-Supervision or touching assistance E. Chair/[id number] transfer 04-Supervision or touching assistance F. Toilet transfer 04-Supervision or touching assistance G. Car transfer 88-Not attempted due to medical condition or safety concerns I. Walk 10 feet 04-Supervision or touching assistance J. Walk 50 feet with two turns 04-Supervision or touching assistance K. Walk 150 feet 04-Supervision or touching assistance L. Walking 10 feet on uneven surfaces 88-Not attempted due to medical condition or safety concerns M. 1 step (curb) 88-Not attempted due to medical condition or safety concerns N. 4 steps 88-Not attempted due to medical condition or safety concerns O. 12 steps 88-Not attempted due to medical condition or safety concerns P. Picking up object 88-Not attempted due to medical condition or safety concerns R. Wheel 50 feet with two turns 88-Not attempted due to medical condition or safety concerns S. Wheel 150 feet 88-Not attempted due to medical condition or safety concerns - Bladder and Bowel Bladder continence 9-Not applicable Bowel continence 0-Always continent - Endurance Fair - Balance Fair - Safety Awareness Fair CURRENT FUNC. DEFICITS: Self-Care, Mobility, Endurance, Balance, and Safety Awareness SIGNATURE PANEL: (CAREERS ADVISER)
[2019-03-17] MEDS: ASPIRIN 325 MG TAB PO SCH (20:37)
[2019-03-17] MEDS: carBAMazepine 200 MG TAB PO SCH (20:37)
[2019-03-17] MEDS: MAGNESIUM HYDROXIDE 8% 30 ML PO SCH (20:43)
--- NOTE | 2019-03-18 00:20 | PN ---
Date of Progress Note: 03/17/2019 Subjective: Patient was seen this morning for followup. No new complaints or problems reported by h er. Objective: Vital Signs: Reviewed. HEENT: Unremarkable. Lungs: Clear to auscultation. Heart: Sounds normal. Abdomen: Soft. Bowel sounds normal. No guarding, rigidity, tenderness, distention. Extremities: No leg edema. Laboratory Data: TSH 0.551. Folic acid level 13.2, B12 of 418. LDL cholesterol is 106, HDL 23, tri glyceride 141. Impression: 1.Hypertension. 2.Hyperlipidemia. 3.Osteoarthritis, multiple sites. 4.Acute pyelonephritis. Plan: We will continue current medication which is IV antibiotic. Continue current blood pressure m edicine. DVT prophylaxis. Continue physical therapy under guidance of Dr. Oliva. I will see her tomorrow for followup. LINDSEY/MODL Voice ID: [id number] Report ID: [id number]
[2019-03-18] MEDS: AMPICILLIN/SULBACT 3 GM in NA CHLORIDE 0.9% 100 ML IVPB SCH ×2 (06:39→14:43)
[2019-03-18] MEDS: ENOXAPARIN 30 MG/0.3 ML SQ SCH (06:39)
[2019-03-18] MEDS: DOCUSATE NA 100 MG CAP PO SCH ×2 (08:23→20:03)
[2019-03-18] MEDS: METOPROLOL XL 25 MG TAB PO SCH (08:23)
[2019-03-18] MEDS: carBAMazepine 200 MG TAB PO SCH (20:03)
[2019-03-18] MEDS: MAGNESIUM HYDROXIDE 8% 30 ML PO SCH (20:04)
[2019-03-18] MEDS: ASPIRIN 325 MG TAB PO SCH (20:04)
[2019-03-18] MEDS ORDERED: AMOX/K CLAV 875 MG TAB PO ONE (21:16)
--- NOTE | 2019-03-19 00:13 | PN ---
Date of Progress Note: 03/18/2019 Subjective: The patient was seen this morning for followup. No new complaints or problems reported by patient. Lying in bed, not in any distress. Objective: Vital Signs: Reviewed. HEENT: Unremarkable. Lungs: Clear to auscultation. Heart: Heart sounds normal. Abdomen: Soft, bowel sounds normal. No guarding, rigidity, tenderness, or distention. Extremities: No leg edema. Impression: 1.Acute pyelonephritis. 2.Hypertension. 3.Osteoarthritis, multiple sites. Plan: We will continue current medications, continue antibiotic. Patient's IV site probably will be undergoing that today and we will change it to oral antibiotics. Continue current antihypertensive medication. I will see her tomorrow for followup. LINDSEY/MODL Voice ID: [id number] Report ID: [id number]
[2019-03-19] MEDS: ENOXAPARIN 30 MG/0.3 ML SQ SCH (07:20)
[2019-03-19] MEDS: DOCUSATE NA 100 MG CAP PO SCH ×2 (07:45→20:32)
[2019-03-19] MEDS: AMOX/K CLAV 875 MG TAB PO SCH ×2 (07:45→20:32)
[2019-03-19] MEDS: METOPROLOL XL 25 MG TAB PO SCH (07:46)
--- NOTE | 2019-03-19 16:21 | R.PN ---
ENCOUNTER DATE AND TIME: 03/18/2019 16:13 (PRESS OPERATOR APPRENTICE) NAME YAMILETH WHITE DATE OF : 1930 DATE OF ADMISSION: 03/15/2019 16:13 (PRESS OPERATOR APPRENTICE) Left Hydronephrosis/SepsisCHIEF COMPLAINT: Debility, left trigeminal neuralgia SUBJECTIVE: Pt denied any depression. Pt denied any Shortness of Breath. Her left facial pain improved after starting Tegretol 200 mg at night. She ambulated 500' with standb y assistance using a rolling walker. On augmentin bid for 7 days from 03-19-19. HDL 23, LDL 106, Chol 157. VITAL SIGNS Temperature: 98.0 F SBP/DBP: 142/68 Pulse: 65 Resp: 16 MEDICATION ALLERGIES: No Known Drug Allergies (NKDA) ENVIRONMENTAL ALLERGIES: None Known - Substance Allergies None Known - Other Allergies None Known NURSING: - Shower allowing shower ACTIVITIES OOB only with supervision THERAPIES: - Dietary and Nutrition Adequate Nutrition. Nutritional Education. Nutritional Supplements. PHYSICAL EXAM - Gen Alert and awake Lying in bed No apparent distress Oriented to: person, time, and place - Skin No skin breakdown. No abnormalities - Eyes No abnormalities - ENMT No abnormalities - Neck No abnormalities - CVS RRR - Chest No abnormalities - Resp Clear to auscultation - Abd Soft - GI + bowel sounds Deferred - No abnormalities - Ext No significant edema - MSK 4/5 weakness in both lower extremities. - Neuro 4/5 strength bilaterally lower extremities. - Psych No abnormalities ASSESSMENT: Pt. is a 88 yo Right-handed white female.On 03/13/2019 she was admitted to [facility] with diagnosis Left Hydronephrosis/Sepsis.Her impairment category is Debility 16 - Debility ( 16).Pre-morbidly, Pt. was independent/mod-I in Locomotion, Safety Awareness, Balance, Social Cognitio n, Transfers Control, Sphincter Control, Self-Care, Endurance, and Communication; and she had good Lo comotion, Balance, Transfers Control, Self-Care, and Endurance.Currently, she has deficits of Locomot ion, Balance, Transfers Control, Self-Care, and Endurance.Pt. is now referred to [facility] for acute in-patient rehabilitation in order to maximize patient's functional independe nce in activities of daily living, strength, ROM, and mobility.- Rehab Goal Patient has realistic goal of being discharged at assistance level 6-Alejandro to reside at Home with Pt self. She has intermittent left facial pain after her stroke 4 years ago. Her pain worsened significantly a fter she had left ear cleaning. Pain is sharp, stabbing, pulsating and brief but recurrent and worse at night.MDM/PLAN: - Physical Therapy Gait dysfunction - to improve, our physical therapists will perform initial evaluation of pt's statu s upon admission and devise an individualized program for Gait Training, and Wheel Chair mobility Inability to transfer - to improve, our physical therapists will perform initial evaluation of pt's status upon admission and devise an individualized program for Bed mobility Need for home safety evaluation - to improve, our physical therapists will perform initial evaluatio n of pt's status upon admission and devise an individualized program for Home Evaluation Need in caregiver upon discharge - to improve, our physical therapists will perform initial evaluati on of pt's status upon admission and devise an individualized program for Caregiver Training Edema - to improve, our physical therapists will perform initial evaluation of pt's status upon admi ssion and devise an individualized program for Elevation Training, and Lymphedema Therapy New precaution - to improve, our physical therapists will perform initial evaluation of pt's status upon admission and devise an individualized program for Patient precaution education Poor balance - to improve, our physical therapists will perform initial evaluation of pt's status up on admission and devise an individualized program for Balance Training Poor endurance - to improve, our physical therapists will perform initial evaluation of pt's status upon admission and devise an individualized program for Endurance Training Weakness - to improve, our physical therapists will perform initial evaluation of pt's status upon a dmission and devise an individualized program for Aquatic Therapy, Neuromuscular Reeducation, and Str engthening Achieving independence - to improve, our physical therapists will perform initial evaluation of pt's status upon admission and devise an individualized program for Community Reintegration Activities - Occupational Therapy ADL deficits - to improve, our occupation therapists will perform initial evaluation of pt's status upon admission and devise an individualized program for Bathing, Bed mobility, Community Reintegratio n, Cooking, Dressing, Eating, Fine Motor Skills, Grooming, Homemaking, Kitchen Mobility, Laundry, Pat ient Education, Safety Awareness, Splinting - Positioning, Transfers(Toilet, Tub, Shower), and Wheel Chair Management Need for personal care assistant - to improve, our occupation therapists will perform initial evaluation of pt's status upon admission and devise an individualized program for Caregiver Training Weakness - to improve, our occupation therapists will perform initial evaluation of pt's status upon admission and devise an individualized program for Aquatic Therapy, Balance, Endurance, UE ROM, and UE strengthening - Other See attached MAR (Medication Administration Record) See attached MAR (Medication Administration Record) Yamileth White.pdf - Diet Type Continue Regular - Diet - Liquid Texture Continue Regular - Tube Feed Continue N/A - Diet - Solid Texture Continue Regular - Shower allowing shower FUNCTIONAL STATUS: UPDATED AT WEEKLY TEAM CONFERENCE - Bladder Same accident frequency: 7-Ind - No accidents in the past 7 days - Bowel Same accident frequency: 7-Ind - No accidents in the past 7 days - Walking Same score based on distance walked: 0(N/A) Same score based on distance walked: 3(>=150ft) - Wheelchair Same score based on distance traveled: 0(N/A) FUNCTIONAL STATUS: - Self-Care A. Eating Ind B. Grooming Ind C. Bathing Alejandro D. Dressing - Upper Alejandro E. Dressing - Lower sup F. Toileting sup - Sphincter Control G. Bladder control Alejandro H. Bowel control Alejandro - Transfers Control I. Bed/Chair/Wheelchair Alejandro J. Toilet Alejandro K. Tub/Shower sup - Locomotion L. Walk/Wheelchair (B) sup M. Stairs sup - Communication N. Comprehension (B) Alejandro O. Expression (B) Alejandro - Social Cognition P. Social Interaction Ind Q. Problem Solving Ind R. Memory Alejandro - Endurance Good - Balance Good - Safety Awareness Good QI SCORES: - Self-Care A. Eating 05-Setup or clean-up assistance B. Oral hygiene 05-Setup or clean-up assistance C. Toileting hygiene 03-Partial/moderate assistance E. Shower/bathe self 03-Partial/moderate assistance F. Upper body dressing 03-Partial/moderate assistance G. Lower body dressing 03-Partial/moderate assistance H. Putting on/taking off footwear 03-Partial/moderate assistance - Mobility A. Roll left and right 03-Partial/moderate assistance B. Sit to lying 03-Partial/moderate assistance C. Lying to sitting on side of bed 03-Partial/moderate assistance D. Sit to stand 04-Supervision or touching assistance E. Chair/zbm-ah-iovfl transfer 04-Supervision or touching assistance F. Toilet transfer 04-Supervision or touching assistance G. Car transfer 88-Not attempted due to medical condition or safety concerns I. Walk 10 feet 04-Supervision or touching assistance J. Walk 50 feet with two turns 04-Supervision or touching assistance K. Walk 150 feet 04-Supervision or touching assistance L. Walking 10 feet on uneven surfaces 88-Not attempted due to medical condition or safety concerns M. 1 step (curb) 88-Not attempted due to medical condition or safety concerns N. 4 steps 88-Not attempted due to medical condition or safety concerns O. 12 steps 88-Not attempted due to medical condition or safety concerns P. Picking up object 88-Not attempted due to medical condition or safety concerns R. Wheel 50 feet with two turns 88-Not attempted due to medical condition or safety concerns S. Wheel 150 feet 88-Not attempted due to medical condition or safety concerns - Bladder and Bowel Bladder continence 9-Not applicable Bowel continence 0-Always continent - Endurance Fair - Balance Fair - Safety Awareness Fair [facility] DEFICITS: Self-Care, Mobility, Endurance, Balance, and Safety Awareness SIGNATURE PANEL: (PRESS OPERATOR APPRENTICE)
[2019-03-19] MEDS: ASPIRIN 325 MG TAB PO SCH (20:31)
[2019-03-19] MEDS: MAGNESIUM HYDROXIDE 8% 30 ML PO SCH (20:36)
[2019-03-19] MEDS: carBAMazepine 200 MG TAB PO SCH (20:43)
[2019-03-19] MEDS ORDERED: carBAMazepine 200 MG TAB ONE (20:44)
--- NOTE | 2019-03-19 21:41 | R.PN ---
ENCOUNTER DATE AND TIME: 03/19/2019 21:31 (RUGBY UNION FOOTBALLER) NAME YAMILETH WHITE DATE OF : 1930 DATE OF ADMISSION: 03/15/2019 16:13 (RUGBY UNION FOOTBALLER) Left Hydronephrosis/SepsisCHIEF COMPLAINT: Debility, left trigeminal neuralgia SUBJECTIVE: Pt denied any depression. Pt denied any Shortness of Breath. Her left facial pain is better after starting Tegretol 200 mg at night. She ambulated 500' with stand by assistance using a rolling walker. On augmentin bid for 7 days from 03-19-19. HDL 23, LDL 106, Chol 157. VITAL SIGNS Temperature: 98.0 F SBP/DBP: 139/64 Pulse: 70 Resp: 15 MEDICATION ALLERGIES: No Known Drug Allergies (NKDA) ENVIRONMENTAL ALLERGIES: None Known - Substance Allergies None Known - Other Allergies None Known NURSING: - Shower allowing shower ACTIVITIES OOB only with supervision THERAPIES: - Dietary and Nutrition Adequate Nutrition. Nutritional Education. Nutritional Supplements. PHYSICAL EXAM - Gen Alert and awake Lying in bed No apparent distress Oriented to: person, time, and place - Skin No skin breakdown. No abnormalities - Eyes No abnormalities - ENMT No abnormalities - Neck No abnormalities - CVS RRR - Chest No abnormalities - Resp Clear to auscultation - Abd Soft - GI + bowel sounds Deferred - No abnormalities - Ext No significant edema - MSK 4/5 weakness in both lower extremities. - Neuro 4/5 strength bilaterally lower extremities. - Psych No abnormalities ASSESSMENT: Pt. is a 88 yo Right-handed white female.On 03/13/2019 she was admitted to [facility] with diagnosis Left Hydronephrosis/Sepsis.Her impairment category is Debility 16 - Debility ( 16).Pre-morbidly, Pt. was independent/mod-I in Locomotion, Safety Awareness, Balance, Social Cognitio n, Transfers Control, Sphincter Control, Self-Care, Endurance, and Communication; and she had good Lo comotion, Balance, Transfers Control, Self-Care, and Endurance.Currently, she has deficits of Locomot ion, Balance, Transfers Control, Self-Care, and Endurance.Pt. is now referred to [facility] for acute in-patient rehabilitation in order to maximize patient's functional independe nce in activities of daily living, strength, ROM, and mobility.- Rehab Goal Patient has realistic goal of being discharged at assistance level 6-Alejandro to reside at Home with Pt self. She has intermittent left facial pain after her stroke 4 years ago. Her pain worsened significantly a fter she had left ear cleaning. Pain is sharp, stabbing, pulsating and brief but recurrent and worse at night.MDM/PLAN: - Physical Therapy Gait dysfunction - to improve, our physical therapists will perform initial evaluation of pt's statu s upon admission and devise an individualized program for Gait Training, and Wheel Chair mobility Inability to transfer - to improve, our physical therapists will perform initial evaluation of pt's status upon admission and devise an individualized program for Bed mobility Need for home safety evaluation - to improve, our physical therapists will perform initial evaluatio n of pt's status upon admission and devise an individualized program for Home Evaluation Need in caregiver upon discharge - to improve, our physical therapists will perform initial evaluati on of pt's status upon admission and devise an individualized program for Caregiver Training Edema - to improve, our physical therapists will perform initial evaluation of pt's status upon admi ssion and devise an individualized program for Elevation Training, and Lymphedema Therapy New precaution - to improve, our physical therapists will perform initial evaluation of pt's status upon admission and devise an individualized program for Patient precaution education Poor balance - to improve, our physical therapists will perform initial evaluation of pt's status up on admission and devise an individualized program for Balance Training Poor endurance - to improve, our physical therapists will perform initial evaluation of pt's status upon admission and devise an individualized program for Endurance Training Weakness - to improve, our physical therapists will perform initial evaluation of pt's status upon a dmission and devise an individualized program for Aquatic Therapy, Neuromuscular Reeducation, and Str engthening Achieving independence - to improve, our physical therapists will perform initial evaluation of pt's status upon admission and devise an individualized program for Community Reintegration Activities - Occupational Therapy ADL deficits - to improve, our occupation therapists will perform initial evaluation of pt's status upon admission and devise an individualized program for Bathing, Bed mobility, Community Reintegratio n, Cooking, Dressing, Eating, Fine Motor Skills, Grooming, Homemaking, Kitchen Mobility, Laundry, Pat ient Education, Safety Awareness, Splinting - Positioning, Transfers(Toilet, Tub, Shower), and Wheel Chair Management Need for chronic care nurse - to improve, our occupation therapists will perform initial evaluation of pt's status upon admission and devise an individualized program for Caregiver Training Weakness - to improve, our occupation therapists will perform initial evaluation of pt's status upon admission and devise an individualized program for Aquatic Therapy, Balance, Endurance, UE ROM, and UE strengthening - Other See attached MAR (Medication Administration Record) See attached MAR (Medication Administration Record) Yamileth White.pdf - Diet Type Continue Regular - Diet - Liquid Texture Continue Regular - Tube Feed Continue N/A - Diet - Solid Texture Continue Regular - Shower allowing shower FUNCTIONAL STATUS: UPDATED AT WEEKLY TEAM CONFERENCE - Bladder Same accident frequency: 7-Ind - No accidents in the past 7 days - Bowel Same accident frequency: 7-Ind - No accidents in the past 7 days - Walking Same score based on distance walked: 0(N/A) Same score based on distance walked: 3(>=150ft) - Wheelchair Same score based on distance traveled: 0(N/A) FUNCTIONAL STATUS: - Self-Care A. Eating Ind B. Grooming Ind C. Bathing Alejandro D. Dressing - Upper Alejandro E. Dressing - Lower sup F. Toileting sup - Sphincter Control G. Bladder control Alejandro H. Bowel control Alejandro - Transfers Control I. Bed/Chair/Wheelchair Alejandro J. Toilet Alejandro K. Tub/Shower sup - Locomotion L. Walk/Wheelchair (B) sup M. Stairs sup - Communication N. Comprehension (B) Alejandro O. Expression (B) Alejandro - Social Cognition P. Social Interaction Ind Q. Problem Solving Ind R. Memory Alejandro - Endurance Good - Balance Good - Safety Awareness Good QI SCORES: - Self-Care A. Eating 05-Setup or clean-up assistance B. Oral hygiene 05-Setup or clean-up assistance C. Toileting hygiene 03-Partial/moderate assistance E. Shower/bathe self 03-Partial/moderate assistance F. Upper body dressing 03-Partial/moderate assistance G. Lower body dressing 03-Partial/moderate assistance H. Putting on/taking off footwear 03-Partial/moderate assistance - Mobility A. Roll left and right 03-Partial/moderate assistance B. Sit to lying 03-Partial/moderate assistance C. Lying to sitting on side of bed 03-Partial/moderate assistance D. Sit to stand 04-Supervision or touching assistance E. Chair/ngo-dc-hozit transfer 04-Supervision or touching assistance F. Toilet transfer 04-Supervision or touching assistance G. Car transfer 88-Not attempted due to medical condition or safety concerns I. Walk 10 feet 04-Supervision or touching assistance J. Walk 50 feet with two turns 04-Supervision or touching assistance K. Walk 150 feet 04-Supervision or touching assistance L. Walking 10 feet on uneven surfaces 88-Not attempted due to medical condition or safety concerns M. 1 step (curb) 88-Not attempted due to medical condition or safety concerns N. 4 steps 88-Not attempted due to medical condition or safety concerns O. 12 steps 88-Not attempted due to medical condition or safety concerns P. Picking up object 88-Not attempted due to medical condition or safety concerns R. Wheel 50 feet with two turns 88-Not attempted due to medical condition or safety concerns S. Wheel 150 feet 88-Not attempted due to medical condition or safety concerns - Bladder and Bowel Bladder continence 9-Not applicable Bowel continence 0-Always continent - Endurance Fair - Balance Fair - Safety Awareness Fair [facility] DEFICITS: Self-Care, Mobility, Endurance, Balance, and Safety Awareness SIGNATURE PANEL: (RUGBY UNION FOOTBALLER)
--- NOTE | 2019-03-19 23:35 | PN ---
Date of Progress Note: 03/19/2019 Subjective: The patient was seen this morning for followup. No new complaints or problems reported by patient, lying in bed, not in distress. Objective: Vital Signs: Reviewed. HEENT: Unremarkable. Lungs: Clear to auscultation. Heart: Heart sounds normal. Abdomen: Soft, bowel sounds normal. No guarding, rigidity, tenderness, or distention. Extremities: No leg edema. Impression: 1.Hypertension. 2.Hyperlipidemia. 3.Stroke. 4.Acute pyelonephritis. 5.Osteoarthritis, multiple sites. Plan: Continue current medications. We will go ahead and continue physical therapy per guidance of Dr. Oliva. As of yesterday evening, antibiotics were changed to oral Augmentin 875 twice a day. We will continue that. I will see her tomorrow for followup. LINDSEY/MODL Voice ID: [id number] Report ID: [id number]
[2019-03-20 06:59] LABS: Absolute Lymphocytes (CBC) 1.8 K/uL (0.7-4.9); Basophils % 0.4 % (0-1.3); Hematocrit 31.2 % (36.0-45.0); Lymphocytes % 27.8 % (15.3-44.8); RBC Red Blood Cell Count 3.42 M/uL (3.86-4.86)
[2019-03-20] MEDS: ENOXAPARIN 30 MG/0.3 ML SQ SCH (07:15)
[2019-03-20 07:39] LABS: Albumin 2.5 g/dL (3.4-5.0); Magnesium 2.7 mg/dL (1.8-2.4); Potassium 4.3 mmol/L (3.5-5.1); Prealbumin 23.3 mg/dL (20-40)
[2019-03-20] MEDS: METOPROLOL XL 25 MG TAB PO SCH (08:24)
[2019-03-20] MEDS: AMOX/K CLAV 875 MG TAB PO SCH ×2 (08:24→19:16)
[2019-03-20] MEDS: DOCUSATE NA 100 MG CAP PO SCH ×2 (08:24→19:16)
[2019-03-20 08:51] LABS: Blood Morphology Comment NOT SEEN (NOT SEEN); Platelet Estimate ADEQ
--- NOTE | 2019-03-20 16:10 | FAST ---
ENCOUNTER DATE AND TIME: 03/20/2019 08:00 (INGOT BUGGY OPERATOR) NAME NBA WHITE DATE OF : 1930 DATE OF ADMISSION: 03/15/2019 16:13 (INGOT BUGGY OPERATOR) PHONE: AGE: 88 N# [id number] GENDER: Female ENCOUNTER PHYSICIAN: Dr. Brian Oliva M.D. ADMISSION DIAGNOSIS: - Debility 16 - Debility (16) Left Hydronephrosis/Sepsis. ROLL LEFT AND RIGHT: ROLL LEFT AND RIGHT - STEP 1: Does the patient complete the activity by him/herself with no assistance (physical, verbal/nonverbal cueing, setup/clean-up)? Yes. 1. [id number] ADMISSION PERFORMANCE: Independent CODE: 06 SIT TO LYING: SIT TO LYING - STEP 1: Does the patient complete the activity by him/herself with no assistance (physical, verbal/nonverbal cueing, setup/clean-up)? Yes. 1. [id number] ADMISSION PERFORMANCE: Independent CODE: 06 LYING TO SITTING: LYING TO SITTING ON SIDE OF BED - STEP 1: Does the patient complete the activity by him/herself with no assistance (physical, verbal/nonverbal cueing, setup/clean-up)? Yes. 1. [id number] ADMISSION PERFORMANCE: Independent CODE: 06 SIT TO STAND: SIT TO STAND - STEP 1: Does the patient complete the activity by him/herself with no assistance (physical, verbal/nonverbal cueing, setup/clean-up)? Yes. 1. [id number] ADMISSION PERFORMANCE: Independent CODE: 06 TRANSFERS: BED, CHAIR: CHAIR/CSE-OF-LUSIW TRANSFER - STEP 1: Does the patient complete the activity by him/herself with no assistance (physical, verbal/nonverbal cueing, setup/clean-up)? Yes. 1. [id number] ADMISSION PERFORMANCE: Independent CODE: 06 TRANSFER TOILET: TOILET TRANSFER - STEP 1: Does the patient complete the activity by him/herself with no assistance (physical, verbal/nonverbal cueing, setup/clean-up)? Yes. 1. [id number] ADMISSION PERFORMANCE: Independent CODE: 06 TRANSFERS: CAR: Not attempted due to environmental limitations (e.g., lack of equipment, weather constraints) CODE: 10 WALK 10 FEET: WALK 10 FEET - STEP 1: Does the patient complete the activity by him/herself with no assistance (physical, verbal/nonverbal cueing, setup/clean-up)? No. WALK 10 FEET - STEP 2: Does the patient need only setup/clean-up assistance from one helper? Yes. 1. [id number] ADMISSION PERFORMANCE: Setup or clean-up assistance CODE: 05 WALK 50 FEET: WALK 50 FEET - STEP 1: Does the patient complete the activity by him/herself with no assistance (physical, verbal/nonverbal cueing, setup/clean-up)? No. WALK 50 FEET - STEP 2: Does the patient need only setup/clean-up assistance from one helper? Yes. 1. [id number] ADMISSION PERFORMANCE: Setup or clean-up assistance CODE: WALK 150 FEET: WALK 150 FEET - STEP 1: Does the patient complete the activity by him/herself with no assistance (physical, verbal/nonverbal cueing, setup/clean-up)? No. WALK 150 FEET - STEP 2: Does the patient need only setup/clean-up assistance from one helper? Yes. 1. [id number] ADMISSION PERFORMANCE: Setup or clean-up assistance CODE: WALK 10 FEET UNEVEN: Not attempted due to medical condition or safety concerns CODE: 88 1 STEP (CURB): 1 STEP CURB - STEP 1: Does the patient complete the activity by him/herself with no assistance (physical, verbal/nonverbal cueing, setup/clean-up)? No. 1 STEP CURB - STEP 2: Does the patient need only setup/clean-up assistance from one helper? Yes. 1. [id number] ADMISSION PERFORMANCE: Setup or clean-up assistance CODE: 4 STEPS: 4 STEPS - STEP 1: Does the patient complete the activity by him/herself with no assistance (physical, verbal/nonverbal cueing, setup/clean-up)? No. 4 STEPS - STEP 2: Does the patient need only setup/clean-up assistance from one helper? Yes. 1. [id number] ADMISSION PERFORMANCE: Setup or clean-up assistance CODE: 12 STEPS: 12 STEPS - STEP 1: Does the patient complete the activity by him/herself with no assistance (physical, verbal/nonverbal cueing, setup/clean-up)? No. 12 STEPS - STEP 2: Does the patient need only setup/clean-up assistance from one helper? Yes. 1. [id number] ADMISSION PERFORMANCE: Setup or clean-up assistance CODE: 05 PICKING UP OBJECT: Not attempted due to medical condition or safety concerns CODE: 88 DOES THE PATIENT USE A WHEELCHAIR/SCOOTER? Q1. DOES THE PATIENT USE A WHEELCHAIR/SCOOTER?: No CODE: 0 INDICATE THE TYPE OF WHEELCHAIR/SCOOTER USED: CODE: EXPR INDICATE THE TYPE OF WHEELCHAIR/SCOOTER USED: CODE: EXPR BLADDER AND BOWEL: CODE: EXPR CODE: EXPR SIGNATURE PANEL: The following modified sections: 1. [id number] Admission Performance, 1. [id number] Admission Performance, 1. [id number] Admission Performance, 1. [id number] Admission Performance, 1. [id number] Admission Performance, 1. [id number] Admission Performance, 1. [id number] Admission Performance, 1. [id number] Admission Performance , 1. [id number] Admission Performance, 1. [id number] Admission Performance, 1. [id number] Admission Performanc e, 1. [id number] Admission Performance, Q1. Does the patient use a wheelchair/scooter? were [electronica lly] signed by Luther Aguilar PTA on SunMar 20 2019 16:10:08 GMT-0600 (Central Standard Time)
[2019-03-20] MEDS: MAGNESIUM HYDROXIDE 8% 30 ML PO SCH (19:16)
[2019-03-20] MEDS: carBAMazepine 200 MG TAB PO SCH (19:16)
[2019-03-20] MEDS: ASPIRIN 325 MG TAB PO SCH (19:16)
--- NOTE | 2019-03-20 20:43 | R.PN ---
ENCOUNTER DATE AND TIME: 03/20/2019 20:38 ([employer]) NAME YAMILETH WHITE DATE OF : 1930 DATE OF ADMISSION: 03/15/2019 16:13 ([employer]) Left Hydronephrosis/SepsisCHIEF COMPLAINT: Debility, left trigeminal neuralgia SUBJECTIVE: Pt denied any depression. Pt denied any Shortness of Breath. Her left facial pain is better on Tegretol 200 mg at night. She ambulated 500' with standby assistanc e using a rolling walker. On augmentin bid for 7 days from 03-19-19. HDL 23, LDL 106, Chol 157. VITAL SIGNS Temperature: 98.0 F SBP/DBP: 141/72 Pulse: 73 Resp: 14 MEDICATION ALLERGIES: No Known Drug Allergies (NKDA) ENVIRONMENTAL ALLERGIES: None Known - Substance Allergies None Known - Other Allergies None Known NURSING: - Shower allowing shower ACTIVITIES OOB only with supervision THERAPIES: - Dietary and Nutrition Adequate Nutrition. Nutritional Education. Nutritional Supplements. PHYSICAL EXAM - Gen Alert and awake Lying in bed No apparent distress Oriented to: person, time, and place - Skin No skin breakdown. No abnormalities - Eyes No abnormalities - ENMT No abnormalities - Neck No abnormalities - CVS RRR - Chest No abnormalities - Resp Clear to auscultation - Abd Soft - GI + bowel sounds Deferred - No abnormalities - Ext No significant edema - MSK 4/5 weakness in both lower extremities. - Neuro 4/5 strength bilaterally lower extremities. - Psych No abnormalities ASSESSMENT: Pt. is a 88 yo Right-handed white female.On 03/13/2019 she was admitted to [facility] with diagnosis Left Hydronephrosis/Sepsis.Her impairment category is Debility 16 - Debility ( 16).Pre-morbidly, Pt. was independent/mod-I in Locomotion, Safety Awareness, Balance, Social Cognitio n, Transfers Control, Sphincter Control, Self-Care, Endurance, and Communication; and she had good Lo comotion, Balance, Transfers Control, Self-Care, and Endurance.Currently, she has deficits of Locomot ion, Balance, Transfers Control, Self-Care, and Endurance.Pt. is now referred to [facility] for acute in-patient rehabilitation in order to maximize patient's functional independe nce in activities of daily living, strength, ROM, and mobility.- Rehab Goal Patient has realistic goal of being discharged at assistance level 6-Alejandro to reside at Home with Pt self. She has intermittent left facial pain after her stroke 4 years ago. Her pain worsened significantly a fter she had left ear cleaning. Pain is sharp, stabbing, pulsating and brief but recurrent and worse at night.MDM/PLAN: - Physical Therapy Gait dysfunction - to improve, our physical therapists will perform initial evaluation of pt's statu s upon admission and devise an individualized program for Gait Training, and Wheel Chair mobility Inability to transfer - to improve, our physical therapists will perform initial evaluation of pt's status upon admission and devise an individualized program for Bed mobility Need for home safety evaluation - to improve, our physical therapists will perform initial evaluatio n of pt's status upon admission and devise an individualized program for Home Evaluation Need in caregiver upon discharge - to improve, our physical therapists will perform initial evaluati on of pt's status upon admission and devise an individualized program for Caregiver Training Edema - to improve, our physical therapists will perform initial evaluation of pt's status upon admi ssion and devise an individualized program for Elevation Training, and Lymphedema Therapy New precaution - to improve, our physical therapists will perform initial evaluation of pt's status upon admission and devise an individualized program for Patient precaution education Poor balance - to improve, our physical therapists will perform initial evaluation of pt's status up on admission and devise an individualized program for Balance Training Poor endurance - to improve, our physical therapists will perform initial evaluation of pt's status upon admission and devise an individualized program for Endurance Training Weakness - to improve, our physical therapists will perform initial evaluation of pt's status upon a dmission and devise an individualized program for Aquatic Therapy, Neuromuscular Reeducation, and Str engthening Achieving independence - to improve, our physical therapists will perform initial evaluation of pt's status upon admission and devise an individualized program for Community Reintegration Activities - Occupational Therapy ADL deficits - to improve, our occupation therapists will perform initial evaluation of pt's status upon admission and devise an individualized program for Bathing, Bed mobility, Community Reintegratio n, Cooking, Dressing, Eating, Fine Motor Skills, Grooming, Homemaking, Kitchen Mobility, Laundry, Pat ient Education, Safety Awareness, Splinting - Positioning, Transfers(Toilet, Tub, Shower), and Wheel Chair Management Need for dialysis patient care technician - to improve, our occupation therapists will perform initial evaluation of pt's status upon admission and devise an individualized program for Caregiver Training Weakness - to improve, our occupation therapists will perform initial evaluation of pt's status upon admission and devise an individualized program for Aquatic Therapy, Balance, Endurance, UE ROM, and UE strengthening - Other See attached MAR (Medication Administration Record) See attached MAR (Medication Administration Record) Yamileth White.pdf - Diet Type Continue Regular - Diet - Liquid Texture Continue Regular - Tube Feed Continue N/A - Diet - Solid Texture Continue Regular - Shower allowing shower FUNCTIONAL STATUS: UPDATED AT WEEKLY TEAM CONFERENCE - Bladder Same accident frequency: 7-Ind - No accidents in the past 7 days - Bowel Same accident frequency: 7-Ind - No accidents in the past 7 days - Walking Same score based on distance walked: 0(N/A) Same score based on distance walked: 3(>=150ft) - Wheelchair Same score based on distance traveled: 0(N/A) FUNCTIONAL STATUS: - Self-Care A. Eating Ind B. Grooming Ind C. Bathing Alejandro D. Dressing - Upper Alejandro E. Dressing - Lower sup F. Toileting sup - Sphincter Control G. Bladder control Alejandro H. Bowel control Alejandro - Transfers Control I. Bed/Chair/Wheelchair Alejandro J. Toilet Alejandro K. Tub/Shower sup - Locomotion L. Walk/Wheelchair (B) sup M. Stairs sup - Communication N. Comprehension (B) Alejandro O. Expression (B) Alejandro - Social Cognition P. Social Interaction Ind Q. Problem Solving Ind R. Memory Alejandro - Endurance Good - Balance Good - Safety Awareness Good QI SCORES: - Self-Care A. Eating 05-Setup or clean-up assistance B. Oral hygiene 05-Setup or clean-up assistance C. Toileting hygiene 03-Partial/moderate assistance E. Shower/bathe self 03-Partial/moderate assistance F. Upper body dressing 03-Partial/moderate assistance G. Lower body dressing 03-Partial/moderate assistance H. Putting on/taking off footwear 03-Partial/moderate assistance - Mobility A. Roll left and right 03-Partial/moderate assistance B. Sit to lying 03-Partial/moderate assistance C. Lying to sitting on side of bed 03-Partial/moderate assistance D. Sit to stand 04-Supervision or touching assistance E. Chair/khx-bd-oxoom transfer 04-Supervision or touching assistance F. Toilet transfer 04-Supervision or touching assistance G. Car transfer 88-Not attempted due to medical condition or safety concerns I. Walk 10 feet 04-Supervision or touching assistance J. Walk 50 feet with two turns 04-Supervision or touching assistance K. Walk 150 feet 04-Supervision or touching assistance L. Walking 10 feet on uneven surfaces 88-Not attempted due to medical condition or safety concerns M. 1 step (curb) 88-Not attempted due to medical condition or safety concerns N. 4 steps 88-Not attempted due to medical condition or safety concerns O. 12 steps 88-Not attempted due to medical condition or safety concerns P. Picking up object 88-Not attempted due to medical condition or safety concerns R. Wheel 50 feet with two turns 88-Not attempted due to medical condition or safety concerns S. Wheel 150 feet 88-Not attempted due to medical condition or safety concerns - Bladder and Bowel Bladder continence 9-Not applicable Bowel continence 0-Always continent - Endurance Fair - Balance Fair - Safety Awareness [facility]IC[facility]: Self-Care, Mobility, Endurance, Balance, and Safety Awareness SIGNATURE PANEL: ([employer])
--- NOTE | 2019-03-21 01:22 | PN ---
Date of Progress Note: 03/20/2019 Subjective: Patient was seen this morning for followup. No new complaints or problems reported by johnathan donnasathya, sitting in chair, not in any distress. Objective: Vital Signs: Reviewed. HEENT: Unremarkable. Lungs: Clear to auscultation. Heart: Heart sounds normal. Abdomen: Soft, bowel sounds normal. No guarding, rigidity, tenderness, or distention. Extremities: No leg edema. Laboratory Data: White count 6.5, hemoglobin 10.6, platelets 316. Sodium 138, potassium 4.3, chlori de 108, bicarb 23, BUN 18, creatinine 0.80, glucose 132. Impression: 1.Hypertension. 2.Stroke. 3.Osteoarthritis, multiple sites. 4.Acute pyelonephritis. Plan: The patient's blood pressure was a little bit elevated this morning, last couple of days it wa s better. We will continue current metoprolol. Continue current antibiotic Augmentin. Continue phy sical therapy per guidance of Dr. Oliva. I will see her tomorrow for followup. LINDSEY/MODL Voice ID: [id number] Report ID: [id number]
[2019-03-21] MEDS: ENOXAPARIN 30 MG/0.3 ML SQ SCH (06:59)
[2019-03-21] MEDS: DOCUSATE NA 100 MG CAP PO SCH ×2 (07:58→21:02)
[2019-03-21] MEDS: METOPROLOL XL 25 MG TAB PO SCH (07:59)
[2019-03-21] MEDS: AMOX/K CLAV 875 MG TAB PO SCH ×2 (07:59→21:02)
--- NOTE | 2019-03-21 09:33 | P.RH.PN ---
Estimated Length of Stay: 10 Expected Discharge Date: 03/23/19 Discharge Disposition Plan: Home Family Support: Yes [facility] Goal: Mobility, Transfers, Self Care Vital Signs: Last Vital Signs Temp 98.4 F 03/20/19 20:00 Pulse 62 03/21/19 07:59 Resp 17 03/20/19 20:00 BP 116/64 03/21/19 07:59 Pulse Ox 98 03/20/19 20:00 Laboratory: Laboratory Last Values WBC 6.5 K/uL (4.3-10.9) D 03/20/19 06:02 RBC 3.42 M/uL (3.86-4.86) L 03/20/19 06:02 Hgb 10.6 g/dL (12.0-15.0) L 03/20/19 06:02 Hct 31.2 % (36.0-45.0) L 03/20/19 06:02 MCV 91.2 fL (80-100) 03/20/19 06:02 MCH 30.9 pg (27.0-35.0) 03/20/19 06:02 MCHC 33.9 g/dL (32.0-36.0) 03/20/19 06:02 RDW 14.8 % (12.1-15.2) 03/20/19 06:02 Plt Count 366 K/uL (152-406) D 03/20/19 06:02 MPV 8.0 fL (7.6-11.3) 03/20/19 06:02 Neutrophils % 60.7 % (41.7-73.7) 03/20/19 06:02 Lymphocytes % 27.8 % (15.3-44.8) 03/20/19 06:02 Monocytes % 8.8 % (3.3-12.3) 03/20/19 06:02 Eosinophils % 2.3 % (0-4.4) 03/20/19 06:02 Basophils % 0.4 % (0-1.3) 03/20/19 06:02 Absolute Neutrophils 3.9 K/uL (1.8-8.0) 03/20/19 06:02 Segmented Neutrophils 50 % (40-80) 03/20/19 06:02 Band Neutrophils 1 % (0-1) 03/20/19 06:02 Absolute Lymphocytes 1.8 K/uL (0.7-4.9) 03/20/19 06:02 Lymphocytes 33 % (15-42) 03/20/19 06:02 Monocytes 9 % (0-10) 03/20/19 06:02 Absolute Monocytes 0.6 K/uL (0.1-1.3) 03/20/19 06:02 Eosinophils 4 % (0-3) H 03/20/19 06:02 Absolute Eosinophils 0.2 K/uL (0-0.5) 03/20/19 06:02 Basophils 1 % (0-1) 03/20/19 06:02 Absolute Basophils 0.0 K/uL (0-0.5) 03/20/19 06:02 Metamyelocytes 1 % (0-0) H 03/20/19 06:02 Atypical Lymphocytes 1 03/20/19 06:02 Morphology Comment Not seen (NOT SEEN) 03/20/19 06:02 Sodium 138 mmol/L (136-145) 03/20/19 06:02 Potassium 4.3 mmol/L (3.5-5.1) 03/20/19 06:02 Chloride 108 mmol/L (98-107) H 03/20/19 06:02 Carbon Dioxide 23 mmol/L (21-32) 03/20/19 06:02 BUN 18 mg/dL (7-18) 03/20/19 06:02 Creatinine 0.80 mg/dL (0.55-1.3) 03/20/19 06:02 Estimated GFR 68 mL/min (=/>90) L 03/20/19 06:02 Glucose 132 mg/dL (74-106) H 03/20/19 06:02 Calcium 9.1 mg/dL (8.5-10.1) 03/20/19 06:02 Magnesium 2.7 mg/dL (1.8-2.4) H 03/20/19 06:02 Albumin 2.5 g/dL (3.4-5.0) L 03/20/19 06:02 Prealbumin 23.3 mg/dL (20-40) 03/20/19 06:02 Triglycerides 141 mg/dL (<150) 03/17/19 05:43 Cholesterol 157 mg/dL (<200) 03/17/19 05:43 LDL Cholesterol, Calc 106 (<130) 03/17/19 05:43 HDL Cholesterol 23 mg/dL (40-60) L 03/17/19 05:43 Cholesterol/HDL Ratio 6.83 03/17/19 05:43 Vitamin B12 418 pg/mL (193-986) 03/17/19 05:43 Serum Folate 13.2 ng/mL (3.1-17.5) 03/17/19 05:43 TSH 0.551 uIU/mL (0.360-3.740) 03/17/19 05:43 Urine Color Yellow 03/15/19 03:15 Urine Appearance Cloudy 03/15/19 03:15 Urine pH 8.0 (5.0-7.0) H 03/15/19 03:15 Ur Specific [place] 1.010 (1.005-1.030) 03/15/19 03:15 Urine Ketones Negative (NEG) 03/15/19 03:15 Urine Blood 1+ (NEG) H 03/15/19 03:15 Urine Nitrite Negative (NEG) 03/15/19 03:15 Urine Bilirubin Negative (NEG) 03/15/19 03:15 Urine Urobilinogen 0.2 mg/dL (0.2-1.0) 03/15/19 03:15 Ur Leukocyte Esterase 3+ (NEG) H 03/15/19 03:15 Urine RBC 10-20 /HPF (NONE SEEN) H 03/15/19 03:15 Urine WBC >50 /HPF (<5) H 03/15/19 03:15 Ur Squamous Epith Cells <5 /HPF (NONE SEEN) 03/15/19 03:15 Ur Urothelial Cells Cancelled 03/14/19 22:58 Calcium Oxalate Crystal Cancelled 03/14/19 22:58 Uric Acid Crystals Cancelled 03/14/19 22:58 Triple Phos Crystals Cancelled 03/14/19 22:58 Other Crystals Cancelled 03/14/19 22:58 Amorphous Sediment Cancelled 03/14/19 22:58 Glitter Cells Cancelled 03/14/19 22:58 Urine Bacteria 20-50 /HPF (<20) H 03/15/19 03:15 Hyaline Casts Cancelled 03/14/19 22:58 Fine Granular Casts Cancelled 03/14/19 22:58 Coarse Granular Casts Cancelled 03/14/19 22:58 Waxy Casts Cancelled 03/14/19 22:58 RBC Casts Cancelled 03/14/19 22:58 WBC Casts Cancelled 03/14/19 22:58 Urine Mucus 2+ /HPF (NONE SEEN) 03/15/19 03:15 Urine Other Cancelled 03/14/19 22:58 Urine Trichomonas Cancelled 03/14/19 22:58 Urine Yeast Cancelled 03/14/19 22:58 Ur Yeast w Hyphae Cancelled 03/14/19 22:58 Urine Yeast (Budding) Cancelled 03/14/19 22:58 Urine Sperm Cancelled 03/14/19 22:58 Urine Culture Reflexed Reflexed 03/15/19 03:15 Urine Total Volume Cancelled 03/14/19 22:58 Urine Glucose Negative (NEG) 03/15/19 03:15 Urine Total Protein 1+ (NEG) H 03/15/19 03:15 Smear Scan Cancelled 03/20/19 06:02 Weight: 139 lb 8 oz Wound Present: No Closed Surgical Incision Present: No Negative Pressure Wound Therapy Present: No Physician Update: Labs reviewed and are stable. She is doing very well with physical and occupational therapy. She independent using a walker. Her left facial pain is better on Tegretol. She will be discharged on Sunday. She will go to outpatient rehab for further therapy. Medical Issues: UTI- on Augmentin 875-125mg tab BID PO Functional Improvement: Patient is progressing well w/ therapy, balance, and safety awareness. 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 Please see the Rehabilitation Signature page for all necessary signatures.
--- NOTE | 2019-03-21 14:57 | FAST ---
ENCOUNTER DATE AND TIME: 03/21/2019 08:00 ([employer]) NAME NBA WHITE DATE OF : 1930 DATE OF ADMISSION: 03/15/2019 16:13 ([employer]) PHONE: AGE: 88 N# [id number] GENDER: Female ENCOUNTER PHYSICIAN: Dr. Brian Oliva M.D. ADMISSION DIAGNOSIS: - Debility 16 - Debility (16) Left Hydronephrosis/Sepsis. EATING: Not assessed/no information CODE: - ORAL HYGIENE: Not assessed/no information CODE: - TOILETING HYGIENE: TOILETING HYGIENE - STEP 1: Does the patient complete the activity by him/herself with no assistance (physical, verbal/nonverbal cueing, setup/clean-up)? Yes. 1. [id number] ADMISSION PERFORMANCE: Independent CODE: 06 BATHING: SHOWER/BATHE SELF - STEP 1: Does the patient complete the activity by him/herself with no assistance (physical, verbal/nonverbal cueing, setup/clean-up)? Yes. 1. [id number] ADMISSION PERFORMANCE: Independent CODE: 06 DRESSING - UPPER BODY: DRESSING - UPPER BODY - STEP 1: Does the patient complete the activity by him/herself with no assistance (physical, verbal/nonverbal cueing, setup/clean-up)? Yes. 1. ADMISSION PERFORMANCE: Independent CODE: 06 DRESSING - LOWER BODY: DRESSING - LOWER BODY - STEP 1: Does the patient complete the activity by him/herself with no assistance (physical, verbal/nonverbal cueing, setup/clean-up)? Yes. 1. [id number] ADMISSION PERFORMANCE: Independent CODE: 06 PUTTING ON/TAKING OFF FOOTWEAR: FOOTWEAR - STEP 1: Does the patient complete the activity by him/herself with no assistance (physical, verbal/nonverbal cueing, setup/clean-up)? Yes. 1. [id number] ADMISSION PERFORMANCE: Independent CODE: 06 DOES THE PATIENT USE A WHEELCHAIR/SCOOTER? CODE: EXPR INDICATE THE TYPE OF WHEELCHAIR/SCOOTER USED: CODE: EXPR INDICATE THE TYPE OF WHEELCHAIR/SCOOTER USED: CODE: EXPR BLADDER AND BOWEL: CODE: EXPR CODE: EXPR SIGNATURE PANEL: The following modified sections: 1. [id number] Admission Performance, 1. [id number] Admission Performance, 1. [id number] Admission Performance, 1. [id number] Admission Performance, 1. [id number] Admission Performance were [electronically] signed by RONA Walker on SunMar 21 2019 14:55:52 GMT-0600 (Central Standard Time)
[2019-03-21] MEDS: MAGNESIUM HYDROXIDE 8% 30 ML PO SCH (21:00)
[2019-03-21] MEDS: ASPIRIN 325 MG TAB PO SCH (21:02)
[2019-03-21] MEDS: carBAMazepine 200 MG TAB PO SCH (21:02)
--- NOTE | 2019-03-21 21:31 | PN ---
Date of Progress Note: 03/21/2019 Subjective: The patient was seen this morning for followup. No new complaints or problems reported by patient. She was sitting in the wheelchair. Her son was present with her at bedside. Objective: Vital Signs: Reviewed. HEENT: Unremarkable. Lungs: Clear to auscultation. Heart: Heart sounds normal. Abdomen: Soft, bowel sounds normal. No guarding, rigidity, tenderness, or distention. Extremities: No leg edema. Impression: 1.Debility. 2.Generalized weakness. 3.Hypertension. 4.Peripheral neuropathy. 5.Osteoarthritis, multiple sites. 6.Stroke. 7.Headache. Plan: The patient's left-sided headache complaint that she had for last 3 years has resolved now wit h use of Tegretol. Last few years she has been having some problem with her peripheral neuropathy th at all resolved with use of SCD and last night she wanted to try without SCD and she did not have any leg complaints at all and she did not use SCD, we will see how she does for a period of time. We wi ll continue current metoprolol. LINDSEY/MODL Voice ID: [id number] Report ID: [id number]
--- NOTE | 2019-03-22 03:00 | FAST ---
SHIFT START DATE/TIME: 03/21/2019 19:00 ([employer] G[employer]) SHIFT END DATE/TIME: 03/22/2019 07:00 ([employer] G[employer]ER) NAME NBA WHITE DATE OF : 1930 DATE OF ADMISSION: 03/15/2019 16:13 ([employer] G[employer]) PHONE: AGE: 88 N# [id number] GENDER: Female ENCOUNTER PHYSICIAN: Dr. Brian Oliva M.D. ADMISSION DIAGNOSIS: - Debility 16 - Debility (16) Left Hydronephrosis/Sepsis. EATING: Not assessed/no information CODE: - ORAL HYGIENE: ORAL HYGIENE - STEP 1: Does the patient complete the activity by him/herself with no assistance (physical, verbal/nonverbal cueing, setup/clean-up)? No. ORAL HYGIENE - STEP 2: Does the patient need only setup/clean-up assistance from one helper? Yes. 1. [id number] ADMISSION PERFORMANCE: Setup or clean-up assistance CODE: 05 TOILETING HYGIENE: TOILETING HYGIENE - STEP 1: Does the patient complete the activity by him/herself with no assistance (physical, verbal/nonverbal cueing, setup/clean-up)? No. TOILETING HYGIENE - STEP 2: Does the patient need only setup/clean-up assistance from one helper? No. TOILETING HYGIENE - STEP 3: Does the patient need only verbal/nonverbal cueing or touching/steadying/contact guard assistance fro m one helper? Yes. 1. [id number] ADMISSION PERFORMANCE: Supervision or touching assistance CODE: 04 BATHING: Not assessed/no information CODE: - DRESSING - UPPER BODY: Not assessed/no information CODE: - DRESSING - LOWER BODY: Not assessed/no information CODE: - PUTTING ON/TAKING OFF FOOTWEAR: Not assessed/no information CODE: - ROLL LEFT AND RIGHT: ROLL LEFT AND RIGHT - STEP 1: Does the patient complete the activity by him/herself with no assistance (physical, verbal/nonverbal cueing, setup/clean-up)? No. ROLL LEFT AND RIGHT - STEP 2: Does the patient need only setup/clean-up assistance from one helper? Yes. 1. [id number] ADMISSION PERFORMANCE: Setup or clean-up assistance CODE: 05 SIT TO LYING: SIT TO LYING - STEP 1: Does the patient complete the activity by him/herself with no assistance (physical, verbal/nonverbal cueing, setup/clean-up)? No. SIT TO LYING - STEP 2: Does the patient need only setup/clean-up assistance from one helper? Yes. 1. [id number] ADMISSION PERFORMANCE: Setup or clean-up assistance CODE: 05 LYING TO SITTING: LYING TO SITTING ON SIDE OF BED - STEP 1: Does the patient complete the activity by him/herself with no assistance (physical, verbal/nonverbal cueing, setup/clean-up)? No. LYING TO SITTING ON SIDE OF BED - STEP 2: Does the patient need only setup/clean-up assistance from one helper? Yes. 1. [id number] ADMISSION PERFORMANCE: Setup or clean-up assistance CODE: 05 SIT TO STAND: SIT TO STAND - STEP 1: Does the patient complete the activity by him/herself with no assistance (physical, verbal/nonverbal cueing, setup/clean-up)? No. SIT TO STAND - STEP 2: Does the patient need only setup/clean-up assistance from one helper? No. SIT TO STAND - STEP 3: Does the patient need only verbal/nonverbal cueing or touching/steadying/contact guard assistance fro m one helper? Yes. 1. [id number] ADMISSION PERFORMANCE: Supervision or touching assistance CODE: 04 TRANSFERS: BED, CHAIR: Not assessed/no information CODE: - TRANSFER TOILET: TOILET TRANSFER - STEP 1: Does the patient complete the activity by him/herself with no assistance (physical, verbal/nonverbal cueing, setup/clean-up)? No. TOILET TRANSFER - STEP 2: Does the patient need only setup/clean-up assistance from one helper? No. TOILET TRANSFER - STEP 3: Does the patient need only verbal/nonverbal cueing or touching/steadying/contact guard assistance fro m one helper? Yes. 1. [id number] ADMISSION PERFORMANCE: Supervision or touching assistance CODE: 04 TRANSFERS: CAR: Not assessed/no information CODE: - WALK 10 FEET: Not assessed/no information CODE: - 1 STEP (CURB): Not assessed/no information CODE: - PICKING UP OBJECT: Not assessed/no information CODE: - DOES THE PATIENT USE A WHEELCHAIR/SCOOTER? CODE: EXPR WHEEL 50 FEET WITH TWO TURNS: Not assessed/no information CODE: - INDICATE THE TYPE OF WHEELCHAIR/SCOOTER USED: CODE: EXPR WHEEL 150 FEET: Not assessed/no information CODE: - INDICATE THE TYPE OF WHEELCHAIR/SCOOTER USED: CODE: EXPR BLADDER AND BOWEL: H350. BLADDER CONTINENCE (3-DAY ASSESSMENT PERIOD): Always continent (no documented incontinence) CODE: 0 H400. BOWEL CONTINENCE (3-DAY ASSESSMENT PERIOD): Always continent CODE: 0
[2019-03-22 05:30] VITALS: BMI 23.1
[2019-03-22] MEDS: ENOXAPARIN 30 MG/0.3 ML SQ SCH (06:48)
[2019-03-22] MEDS: AMOX/K CLAV 875 MG TAB PO SCH ×2 (08:17→20:59)
[2019-03-22] MEDS: DOCUSATE NA 100 MG CAP PO SCH ×2 (08:17→20:59)
[2019-03-22] MEDS: METOPROLOL XL 25 MG TAB PO SCH (08:17)
--- NOTE | 2019-03-22 16:15 | FAST ---
SHIFT START DATE/TIME: 03/22/2019 07:00 (AIRPLANE CAPTAIN) SHIFT END DATE/TIME: 03/22/2019 19:00 (AIRPLANE CAPTAIN) NAME NBA WHITE DATE OF : 1930 DATE OF ADMISSION: 03/15/2019 16:13 (AIRPLANE CAPTAIN) PHONE: AGE: 88 N# [id number] GENDER: Female ENCOUNTER PHYSICIAN: Dr. Brian Oliva M.D. ADMISSION DIAGNOSIS: - Debility 16 - Debility (16) Left Hydronephrosis/Sepsis. EATING: EATING - STEP 1: Does the patient complete the activity by him/herself with no assistance (physical, verbal/nonverbal cueing, setup/clean-up)? No. EATING - STEP 2: Does the patient need only setup/clean-up assistance from one helper? Yes. 1. [id number] ADMISSION PERFORMANCE: Setup or clean-up assistance CODE: 05 ORAL HYGIENE: ORAL HYGIENE - STEP 1: Does the patient complete the activity by him/herself with no assistance (physical, verbal/nonverbal cueing, setup/clean-up)? No. ORAL HYGIENE - STEP 2: Does the patient need only setup/clean-up assistance from one helper? Yes. 1. [id number] ADMISSION PERFORMANCE: Setup or clean-up assistance CODE: 05 TOILETING HYGIENE: TOILETING HYGIENE - STEP 1: Does the patient complete the activity by him/herself with no assistance (physical, verbal/nonverbal cueing, setup/clean-up)? No. TOILETING HYGIENE - STEP 2: Does the patient need only setup/clean-up assistance from one helper? Yes. 1. [id number] ADMISSION PERFORMANCE: Setup or clean-up assistance CODE: 05 BATHING: Not assessed/no information CODE: - DRESSING - UPPER BODY: DRESSING - UPPER BODY - STEP 1: Does the patient complete the activity by him/herself with no assistance (physical, verbal/nonverbal cueing, setup/clean-up)? No. DRESSING - UPPER BODY - STEP 2: Does the patient need only setup/clean-up assistance from one helper? Yes. 1. [id number] ADMISSION PERFORMANCE: Setup or clean-up assistance CODE: 05 DRESSING - LOWER BODY: DRESSING - LOWER BODY - STEP 1: Does the patient complete the activity by him/herself with no assistance (physical, verbal/nonverbal cueing, setup/clean-up)? No. DRESSING - LOWER BODY - STEP 2: Does the patient need only setup/clean-up assistance from one helper? No. DRESSING - LOWER BODY - STEP 3: Does the patient need only verbal/nonverbal cueing or touching/steadying/contact guard assistance fro m one helper? Yes. 1. [id number] ADMISSION PERFORMANCE: Supervision or touching assistance CODE: 04 PUTTING ON/TAKING OFF FOOTWEAR: FOOTWEAR - STEP 1: Does the patient complete the activity by him/herself with no assistance (physical, verbal/nonverbal cueing, setup/clean-up)? No. FOOTWEAR - STEP 2: Does the patient need only setup/clean-up assistance from one helper? No. FOOTWEAR - STEP 3: Does the patient need only verbal/nonverbal cueing or touching/steadying/contact guard assistance fro m one helper? Yes. 1. [id number] ADMISSION PERFORMANCE: Supervision or touching assistance CODE: 04 ROLL LEFT AND RIGHT: ROLL LEFT AND RIGHT - STEP 1: Does the patient complete the activity by him/herself with no assistance (physical, verbal/nonverbal cueing, setup/clean-up)? Yes. ROLL LEFT AND RIGHT - STEP 2: Does the patient need only setup/clean-up assistance from one helper? Yes. 1. [id number] ADMISSION PERFORMANCE: Setup or clean-up assistance CODE: 05 SIT TO LYING: SIT TO LYING - STEP 1: Does the patient complete the activity by him/herself with no assistance (physical, verbal/nonverbal cueing, setup/clean-up)? No. SIT TO LYING - STEP 2: Does the patient need only setup/clean-up assistance from one helper? Yes. 1. [id number] ADMISSION PERFORMANCE: Setup or clean-up assistance CODE: 05 LYING TO SITTING: LYING TO SITTING ON SIDE OF BED - STEP 1: Does the patient complete the activity by him/herself with no assistance (physical, verbal/nonverbal cueing, setup/clean-up)? No. LYING TO SITTING ON SIDE OF BED - STEP 2: Does the patient need only setup/clean-up assistance from one helper? Yes. 1. [id number] ADMISSION PERFORMANCE: Setup or clean-up assistance CODE: 05 SIT TO STAND: SIT TO STAND - STEP 1: Does the patient complete the activity by him/herself with no assistance (physical, verbal/nonverbal cueing, setup/clean-up)? Yes. 1. [id number] ADMISSION PERFORMANCE: Independent CODE: 06 TRANSFERS: BED, CHAIR: CHAIR/[id number] TRANSFER - STEP 1: Does the patient complete the activity by him/herself with no assistance (physical, verbal/nonverbal cueing, setup/clean-up)? No. CHAIR/[id number] TRANSFER - STEP 2: Does the patient need only setup/clean-up assistance from one helper? Yes. 1. [id number] ADMISSION PERFORMANCE: Setup or clean-up assistance CODE: 05 TRANSFER TOILET: TOILET TRANSFER - STEP 1: Does the patient complete the activity by him/herself with no assistance (physical, verbal/nonverbal cueing, setup/clean-up)? No. TOILET TRANSFER - STEP 2: Does the patient need only setup/clean-up assistance from one helper? Yes. 1. [id number] ADMISSION PERFORMANCE: Setup or clean-up assistance CODE: 05 TRANSFERS: CAR: Not assessed/no information CODE: - WALK 10 FEET: Not assessed/no information CODE: - 1 STEP (CURB): Not assessed/no information CODE: - PICKING UP OBJECT: PICKING UP OBJECT - STEP 1: Does the patient complete the activity by him/herself with no assistance (physical, verbal/nonverbal cueing, setup/clean-up)? No. PICKING UP OBJECT - STEP 2: Does the patient need only setup/clean-up assistance from one helper? No. PICKING UP OBJECT - STEP 3: Does the patient need only verbal/nonverbal cueing or touching/steadying/contact guard assistance fro m one helper? Yes. 1. [id number] ADMISSION PERFORMANCE: Supervision or touching assistance CODE: 04 DOES THE PATIENT USE A WHEELCHAIR/SCOOTER? CODE: EXPR WHEEL 50 FEET WITH TWO TURNS: Not assessed/no information CODE: - INDICATE THE TYPE OF WHEELCHAIR/SCOOTER USED: RR1. INDICATE THE TYPE OF WHEELCHAIR/SCOOTER USED.: Manual CODE: 1 WHEEL 150 FEET: Not assessed/no information CODE: - INDICATE THE TYPE OF WHEELCHAIR/SCOOTER USED: SS1. INDICATE THE TYPE OF WHEELCHAIR/SCOOTER USED.: Manual CODE: 1 BLADDER AND BOWEL: H350. BLADDER CONTINENCE (3-DAY ASSESSMENT PERIOD): Always continent (no documented incontinence) CODE: 0 H400. BOWEL CONTINENCE (3-DAY ASSESSMENT PERIOD): Always continent CODE: 0 SIGNATURE PANEL: This form was reviewed and signed by Colleen LeeNDarwin on Sat Mar 22 2019 16:14:26 GMT-0600 ([place]r [place] Standard Time) The following modified sections: 1. [id number] Admission Performance, 1. [id number] Admission Performance, 1. LX7038G Admission Performance, 1. QI1888c Admission Performance, 1. ZA8811a Admission Performance, 1. UG7522i Admission Performance, 1. SE8343V Admission Performance, 1. SW0978U Admission Performance , 1. KD2122U Admission Performance, 1. FJ4432H Admission Performance, 1. WT8477T Admission Performanc e, 1. GT0241Q Admission Performance, 1. UK8901M Admission Performance, 1. [id number] Admission Performan ce, RR1. Indicate the type of wheelchair/scooter used., Code, SS1. Indicate the type of wheelchair/sc ooter used., H350. Bladder Continence (3-day assessment period), H400. Bowel Continence (3-day assess ment period) were [electronically] signed by Colleen LeeNDarwin on Sat Mar 22 2019 16:14:19 GMT-060 0 (Central Standard Time)
[2019-03-22] MEDS: MAGNESIUM HYDROXIDE 8% 30 ML PO SCH (21:00)
[2019-03-22] MEDS: ASPIRIN 325 MG TAB PO SCH (21:02)
[2019-03-22] MEDS: carBAMazepine 200 MG TAB PO SCH (21:02)
[2019-03-23] MEDS: ENOXAPARIN 30 MG/0.3 ML SQ SCH (07:09)
[2019-03-23] MEDS: AMOX/K CLAV 875 MG TAB PO SCH ×2 (07:51→21:16)
[2019-03-23] MEDS: METOPROLOL XL 25 MG TAB PO SCH (07:51)
[2019-03-23] MEDS: DOCUSATE NA 100 MG CAP PO SCH ×2 (07:51→21:17)
[2019-03-23 20:09] VITALS: O2SAT 97
[2019-03-23] MEDS: MAGNESIUM HYDROXIDE 8% 30 ML PO SCH (21:00)
[2019-03-23] MEDS: ASPIRIN 325 MG TAB PO SCH (21:16)
[2019-03-23] MEDS: carBAMazepine 200 MG TAB PO SCH (21:17)
[2019-03-24] MEDS: ENOXAPARIN 30 MG/0.3 ML SQ SCH (07:21)
[2019-03-24] MEDS: DOCUSATE NA 100 MG CAP PO SCH (07:22)
[2019-03-24] MEDS: METOPROLOL XL 25 MG TAB PO SCH (07:22)
[2019-03-24] MEDS: AMOX/K CLAV 875 MG TAB PO SCH (07:22)
[2019-03-24 07:23] VITALS: BP 112/57
[2019-03-24 07:30] VITALS: TEMP 97.8
--- NOTE | 2019-03-24 09:17 | FAST ---
SHIFT START DATE/TIME: 03/24/2019 07:00 (HAZMAT CDL A DRIVER) SHIFT END DATE/TIME: 03/24/2019 19:00 (HAZMAT CDL A DRIVER) NAME NBA WHITE DATE OF : 1930 DATE OF ADMISSION: 03/15/2019 16:13 (HAZMAT CDL A DRIVER) PHONE: AGE: 88 N# [id number] GENDER: Female ENCOUNTER PHYSICIAN: Dr. Brian Oliva M.D. ADMISSION DIAGNOSIS: - Debility 16 - Debility (16) Left Hydronephrosis/Sepsis. EATING: EATING - STEP 1: Does the patient complete the activity by him/herself with no assistance (physical, verbal/nonverbal cueing, setup/clean-up)? No. EATING - STEP 2: Does the patient need only setup/clean-up assistance from one helper? Yes. 1. [id number] ADMISSION PERFORMANCE: Setup or clean-up assistance CODE: 05 ORAL HYGIENE: ORAL HYGIENE - STEP 1: Does the patient complete the activity by him/herself with no assistance (physical, verbal/nonverbal cueing, setup/clean-up)? No. ORAL HYGIENE - STEP 2: Does the patient need only setup/clean-up assistance from one helper? No. ORAL HYGIENE - STEP 3: Does the patient need only verbal/nonverbal cueing or touching/steadying/contact guard assistance fro m one helper? Yes. 1. [id number] ADMISSION PERFORMANCE: Supervision or touching assistance CODE: 04 TOILETING HYGIENE: TOILETING HYGIENE - STEP 1: Does the patient complete the activity by him/herself with no assistance (physical, verbal/nonverbal cueing, setup/clean-up)? No. TOILETING HYGIENE - STEP 2: Does the patient need only setup/clean-up assistance from one helper? Yes. 1. [id number] ADMISSION PERFORMANCE: Setup or clean-up assistance CODE: 05 BATHING: Not assessed/no information CODE: - DRESSING - UPPER BODY: Not assessed/no information CODE: - DRESSING - LOWER BODY: Not assessed/no information CODE: - PUTTING ON/TAKING OFF FOOTWEAR: Not assessed/no information CODE: - ROLL LEFT AND RIGHT: Not assessed/no information CODE: - SIT TO LYING: Not assessed/no information CODE: - LYING TO SITTING: Not assessed/no information CODE: - SIT TO STAND: SIT TO STAND - STEP 1: Does the patient complete the activity by him/herself with no assistance (physical, verbal/nonverbal cueing, setup/clean-up)? No. SIT TO STAND - STEP 2: Does the patient need only setup/clean-up assistance from one helper? No. SIT TO STAND - STEP 3: Does the patient need only verbal/nonverbal cueing or touching/steadying/contact guard assistance fro m one helper? Yes. 1. [id number] ADMISSION PERFORMANCE: Supervision or touching assistance CODE: 04 TRANSFERS: BED, CHAIR: CHAIR/[id number] TRANSFER - STEP 1: Does the patient complete the activity by him/herself with no assistance (physical, verbal/nonverbal cueing, setup/clean-up)? No. CHAIR/[id number] TRANSFER - STEP 2: Does the patient need only setup/clean-up assistance from one helper? No. CHAIR/[id number] TRANSFER - STEP 3: Does the patient need only verbal/nonverbal cueing or touching/steadying/contact guard assistance fro m one helper? Yes. 1. [id number] ADMISSION PERFORMANCE: Supervision or touching assistance CODE: 04 TRANSFER TOILET: TOILET TRANSFER - STEP 1: Does the patient complete the activity by him/herself with no assistance (physical, verbal/nonverbal cueing, setup/clean-up)? No. TOILET TRANSFER - STEP 2: Does the patient need only setup/clean-up assistance from one helper? No. TOILET TRANSFER - STEP 3: Does the patient need only verbal/nonverbal cueing or touching/steadying/contact guard assistance fro m one helper? Yes. 1. [id number] ADMISSION PERFORMANCE: Supervision or touching assistance CODE: 04 TRANSFERS: CAR: Not assessed/no information CODE: - WALK 10 FEET: Not assessed/no information CODE: - 1 STEP (CURB): Not assessed/no information CODE: - PICKING UP OBJECT: Not assessed/no information CODE: - DOES THE PATIENT USE A WHEELCHAIR/SCOOTER? CODE: EXPR WHEEL 50 FEET WITH TWO TURNS: Not assessed/no information CODE: - INDICATE THE TYPE OF WHEELCHAIR/SCOOTER USED: CODE: EXPR WHEEL 150 FEET: Not assessed/no information CODE: - INDICATE THE TYPE OF WHEELCHAIR/SCOOTER USED: CODE: EXPR BLADDER AND BOWEL: H350. BLADDER CONTINENCE (3-DAY ASSESSMENT PERIOD): Always continent (no documented incontinence) CODE: 0 H400. BOWEL CONTINENCE (3-DAY ASSESSMENT PERIOD): Always continent CODE: 0 SIGNATURE PANEL: The following modified sections: 1. FN0206V Admission Performance, 1. FI5386Q Admission Performance, 1. CU3447T Admission Performance, 1. KP6204D Admission Performance, 1. ND5940Q Admission Performance, 1. NU6135J Admission Performance, Code, H350. Bladder Continence (3-day assessment period), H350. Bl adder Continence (3-day assessment period), H400. Bowel Continence (3-day assessment period) were [el ectronically] signed by Jass Rios on SunMar 24 2019 09:15:32 GMT-0600 (Central Standard Time)
--- NOTE | 2019-03-26 11:36 | DS ---
Date of Discharge: 03/24/2019 Disposition: Discharged to go home. Discharge Medication Instructions: 1.Take aspirin 325 mg 1 tablet by mouth daily with food. 2.Augmentin 875 mg twice a day for 1 week. 3.Tegretol, which is carbamazepine 200 mg at bedtime. 4.Metoprolol-XL, which is metoprolol succinate 25 mg p.o. daily. 5.Follow up at my office in 3 to 4 weeks. [address]. Oliva in 1 month. Laboratory Data: Labs done on 03/15/2019, white count 9.9, hemoglobin 11, platelets 223. Sodium 141 , potassium 3.6, chloride 112, bicarb 25, BUN 8, creatinine 0.61, glucose 105. Final Diagnoses: 1.Debility. 2.Generalized weakness. 3.Acute pyelonephritis. 4.Anemia. 5.Hypertension. 6.Hyperlipidemia. 7.Stroke. 8.Osteoarthritis, multiple sites. 9.Impaired fasting glucose. 10.Diverticulosis. Hospital Course: An 88-year-old female patient who was admitted to rehab floor after her brief stay on medical floor. Patient received physical therapy under guidance of Dr. Oliva and we continued her medical management. Dr. Oliva started her on Tegretol for left-sided headache that she has be en having for last few years and fortunately she responded very well to that and her headache has res olved. She also had some neuropathy type of symptoms, which actually resolved after we started using SCD and then subsequently she decided not to use SCD and she still continue to manage to stay stable without her symptoms of neuropathy. She participated well with physical therapy and her generalized weakness and debility problem has improved significantly and she was discharged to go home in stable condition. She will be living with her daughter. We did start her on antihypertensive medication, metoprolol-XL 25 mg daily, has tolerated that very well. She was given oral antibiotics once her IV access came out and she has tolerated that well as well. I will see her on outpatient basis for jhonatan watkins ACA/MODL Voice ID: [id number] Report ID: [id number]
== END 2019-03-24 14:30 | disposition home or self-care (01) | DRG 693 ==
LOC: 5TH 19:00
PROVIDERS: ADMIT Internal Medicine; ATTEND Internal Medicine
DX: N13.30 Unspecified hydronephrosis (principal); A41.9 Sepsis, unspecified organism; N10 Acute pyelonephritis; N39.0 Urinary tract infection, site not specified; I10 Essential (primary) hypertension; R53.81 Other malaise; G50.0 Trigeminal neuralgia; E78.5 Hyperlipidemia, unspecified; M15.9 Polyosteoarthritis, unspecified; K57.90 Diverticulosis of intestine, part unspecified, without perforation or abscess without bleeding; R73.01 Impaired fasting glucose; R32 Unspecified urinary incontinence
CPT/HCPCS: 36415; 80048; 80061; 81001; 82040; 82607; 82746; 83735; 84134; 84443; 85025; 87086; 87088; 97110; 97112; 97116; 97161; 97530; J0295; J1650; J2270

== ENCOUNTER 2019-04-28 19:46 | Emergency (ER) | payer OTHER, MEDICARE ==
--- OUTSIDE RECORDS SUMMARY | 2019-04-28 19:49 | XMS REPORT ---
:1930 Author [facility] Address [address] [place] [address] Dr. Hernadez [address] [place] [id number] Care Team Providers Name Role Phone Unavailable Unavailable Unavailable Payers Payer Name Policy Type Policy Number Effective Date Expiration Date Problems This patient has no known problems. Allergies, Adverse Reactions, Alerts Allergy Name Allergy Status Severity Reaction(s) Onset Inactive Treating Comments Type Date Date Clinician Sulfa DA Active U 2008-04 (Sulfonamide 2-21 Antibiotics) 00:00: 00 No Known DA Active CO 2008-04 Intolerances 2-21 00:00: 00 Medications This patient has no known medications.
--- NOTE | 2019-04-28 20:33 | RAD REPORT ---
EXAM DESCRIPTION: RAD - Chest Pa And Lat (2 Views) - 04/28/2019 8:22 pm CLINICAL HISTORY: fall, L chest wall pain;Chest pain Chest pain. COMPARISON: Chest Single View dated 03/11/2019 TECHNIQUE: PA and lateral views of the chest were obtained. FINDINGS: The lungs are hyperexpanded compatible with COPD. The heart is upper limit of normal in si ze. No displaced fractures. IMPRESSION: COPD without acute process identified.
[2019-04-28] MEDS ORDERED: TRAMADOL HCL 50 MG TAB ONE (21:20)
--- NOTE | 2019-04-28 21:54 | ER ---
Nurse's Notes [facility] Name: Yamileth Gibbons Age: 88 yrs Sex: Female : 1930 Arrival Date: 04/28/2019 Time: 19:48 Bed 12 Private MD: Diagnosis: Contusion of left front wall of thorax Presentation: 04/28 19:56 Presenting complaint: Patient states: L lateral chest wall pain after stumbling and ss falling into walker handle yesterday afternoon. Transition of care: patient was not received from another setting of care. Onset of symptoms was April 27, 2019. Risk Assessment: Do you want to hurt yourself or someone else? Patient reports no desire to harm self or others. Initial Sepsis Screen: Does the patient meet any 2 criteria? No. Patient's initial sepsis screen is negative. Does the patient have a suspected source of infection? No. Patient's initial sepsis screen is negative. Care prior to arrival: None. 19:56 Method Of Arrival: Wheelchair ss 19:56 Acuity: [place] 4 ss Historical: - Allergies: 20:00 No Known Allergies; ss - PMHx: 20:00 CVA; Hypertension; ss - Immunization history:: Adult Immunizations up to date. - Coronavirus screen:: The patient has NOT traveled to [place], [place], or [place] in the past 14 days. Proceed with normal triage process as indicated. - Social history:: Smoking status: Patient denies any tobacco usage or history of. - Ebola Screening: : Patient denies exposure to infectious person Patient denies travel to an Ebola-affected area in the 21 days before illness onset. Screenin:56 Abuse screen: Denies threats or abuse. Denies injuries from another. Nutritional ss screening: No deficits noted. Tuberculosis screening: Never had TB. Fall Risk None identified. Assessment: 19:56 General: Appears in no apparent distress. comfortable, Behavior is calm, cooperative. ss Pain: Complains of pain in L lateral chest wall Pain currently is 5 out of 10 on a pain scale. Neuro: Level of Consciousness is awake, alert, obeys commands, Oriented to person, place, time, situation. Cardiovascular: Pulses are palpable in right radial artery and left radial artery. Respiratory: Airway is patent Respiratory effort is even, unlabored, Respiratory pattern is regular, symmetrical. GI: No signs and/or symptoms were reported involving the gastrointestinal system. Patient currently denies diarrhea, nausea, vomiting. : No signs and/or symptoms were reported regarding the genitourinary system. EENT: Nares are clear Oral mucosa is moist. Derm: Skin is intact, is healthy with good turgor, Skin is dry, Skin is pink, warm \T\ dry. normal. Musculoskeletal: Circulation, motion, and sensation intact. Range of motion: intact in all extremities, Swelling absent. 22:08 Reassessment: Patient appears in no apparent distress at this time. Patient is alert, aa1 oriented x 3, equal unlabored respirations, skin warm/dry/pink. Discussed d/c \T\ f/u instructions with pt \T\ family; denies questions or concerns at this time. Patient states feeling better. Vital Signs: 20:00 BP 165 / 54; Pulse 54; Resp 17; Temp 99.1(TE); Pulse Ox 97% on R/A; Weight 61.69 kg; ss Height 5 ft. 0 in. (152.40 cm); Pain 5/10; 22:08 BP 149 / 62; Pulse 59; Resp 16; Temp 98.7; Pulse Ox 96% on R/A; Pain 3/10; aa1 20:00 Body Mass Index 26.56 (61.69 kg, 152.40 cm) ss ED Course: 19:48 Patient arrived in ED. cf2 19:56 Patient has correct armband on for positive identification. Bed in low position. Call ss light in reach. 19:57 Triage completed. ss 20:00 Arm band placed on right wrist. ss 20:12 Yonatan Villagran NP is PHCP. pm1 20:12 Josiah Crawford MD is Attending Physician. pm1 20:21 XRAY Chest Pa And Lat (2 Views) In Process Unspecified. EDMS 21:10 Izabel Juarez, GINGER is Primary Nurse. ss 21:12 No provider procedures requiring assistance completed. Patient did not have IV access ss during this emergency room visit. 21:36 Ribs Left XRAY In Process Unspecified. EDMS Administered Medications: 21:43 Drug: traMADol 50 mg Route: PO; ss 22:07 Follow up: Response: No adverse reaction; Pain is decreased aa1 Outcome: 21:54 Discharge ordered by . pm1 22:08 Discharged to home via wheelchair, with family. aa1 22:08 Condition: good 22:08 Discharge instructions given to patient, family, Instructed on discharge instructions, follow up and referral plans. medication usage, Demonstrated understanding of instructions, follow-up care, medications, Prescriptions given X 1. 22:09 Patient left the ED. aa1 Signatures: Dispatcher [employer] EDMS Savanna Torres RN RN aa1 Izabel Juarez RN RN ss Marinas, Patrick, NP E[employer] OFFICER pm1 Krissy King cf2
--- NOTE | 2019-04-28 21:54 | EDPHYS ---
Physician Documentation [facility] Name: Yamileth Gibbons Age: 88 yrs Sex: Female : 1930 Arrival Date: 04/28/2019 Time: 19:48 Bed 12 Private MD: ED Physician Josiah Crawford HPI: 04/28 21:04 This 88 yrs old Female presents to ER via Wheelchair with complaints of Fall pm1 Injury, Left Rib Pain. 21:04 Onset: The symptoms/episode began/occurred yesterday. Associated injuries: The patient pm1 sustained left anterior rib cage. Severity of symptoms: in the emergency department the symptoms are unchanged. The patient has not experienced similar symptoms in the past. Patient was using her walker and had her cell phone on her right hand. The phone dropped and she reached out to grab the phone with the right hand but she lost her balance and leaned forward. The walker prevented her from falling but she was resting against the left handle of the walker on the left rib cage area. No shortness of breath but complaining of pain with deep breathing and palpation. 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 - Coronavirus screen:: The patient has NOT traveled to [place], [place], or [place] in the past 14 days. Proceed with normal triage process as indicated. - Social history:: Smoking status: Patient denies any tobacco usage or history of. - Ebola Screening: : Patient denies exposure to infectious person Patient denies travel to an Ebola-affected area in the 21 days before illness onset. ROS: 21:04 Constitutional: Negative for fever, chills, and weight loss, Neck: Negative for injury, pm1 pain, and swelling, Cardiovascular: Negative for chest pain, palpitations, and edema, Respiratory: Negative for shortness of breath, cough, wheezing, and pleuritic chest pain, Abdomen/GI: Negative for abdominal pain, nausea, vomiting, diarrhea, and constipation, Back: Negative for injury and pain, MS/Extremity: Negative for injury and deformity, Skin: Negative for injury, rash, and discoloration, Neuro: Negative for headache, weakness, numbness, tingling, and seizure. 21:04 All other systems are negative. Exam: 21:04 Constitutional: This is a well developed, well nourished patient who is awake, alert, pm1 and in no acute distress. Head/Face: Normocephalic, atraumatic. Neck: Trachea midline, no thyromegaly or masses palpated, and no cervical lymphadenopathy. Supple, full range of motion without nuchal rigidity, or vertebral point tenderness. No Meningismus. 21:04 Cardiovascular: Regular rate and rhythm with a normal S1 and S2. No gallops, murmurs, or rubs. Normal PMI, no JVD. No pulse deficits. Respiratory: Lungs have equal breath sounds bilaterally, clear to auscultation and percussion. No rales, rhonchi or wheezes noted. No increased work of breathing, no retractions or nasal flaring. Abdomen/GI: Soft, non-tender, with normal bowel sounds. No distension or tympany. No guarding or rebound. No evidence of tenderness throughout. Back: No spinal tenderness. No costovertebral tenderness. Full range of motion. Skin: Warm, dry with normal turgor. Normal color with no rashes, no lesions, and no evidence of cellulitis. MS/ Extremity: Pulses equal, no cyanosis. Neurovascular intact. Full, normal range of motion. 21:04 Chest/axilla: Inspection: normal, Palpation: tenderness, that totally reproduces the patient's complaints, focal point tenderness to left front thorax below left breast, Axilla: 21:04 Neuro: Orientation: is normal, Motor: is normal, moves all fours. Vital Signs: 20:00 BP 165 / 54; Pulse 54; Resp 17; Temp 99.1(TE); Pulse Ox 97% on R/A; Weight 61.69 kg; ss Height 5 ft. 0 in. (152.40 cm); Pain 5/10; 22:08 BP 149 / 62; Pulse 59; Resp 16; Temp 98.7; Pulse Ox 96% on R/A; Pain 3/10; aa1 20:00 Body Mass Index 26.56 (61.69 kg, 152.40 cm) ss MDM: 20:12 Patient medically screened. pm1 21:03 ED course: Daughter requested dedicated left rib x-rays. Explained it does not change pm1 treatment plan, which is pain medications and incentive spirometry. 21:53 Data reviewed: vital signs. Data interpreted: Pulse oximetry: on room air is 97 %. pm1 Interpretation: normal. Counseling: I had a detailed discussion with the patient and/or guardian regarding: the historical points, exam findings, and any diagnostic results supporting the discharge/admit diagnosis, radiology results, the need for outpatient follow up, to return to the emergency department if symptoms worsen or persist or if there are any questions or concerns that arise at home. 04/28 20:02 Order name: XRAY Chest Pa And Lat (2 Views); Complete Time: 20:52 ss 04/28 21:02 Order name: Ribs Left XRAY pm1 04/28 21:54 Order name: INCENTIVE SPIROMETRY pm1 Administered Medications: 21:43 Drug: traMADol 50 mg Route: PO; 22:07 Follow up: Response: No adverse reaction; Pain is decreased aa1 Disposition: 04/29 06:48 Co-signature as Attending Physician, Josiah Crawford MD I agree with the assessment and tw4 plan of care. Disposition: 04/28/19 21:54 Discharged to Home. Impression: Contusion of left front wall of thorax. - Condition is Stable. - Discharge Instructions: Rib Contusion, Rib Fracture, Incentive Spirometer. - Prescriptions for Tramadol 50 mg Oral Tablet - take 1 tablet by ORAL route every 8 hours As needed as needed; 20 tablet. - Medication Reconciliation Form, Thank You Letter, Antibiotic Education, Prescription Opioid Use form. - Follow up: Emergency Department; When: As needed; Reason: Worsening of condition. Follow up: Private Physician; When: 2 - 3 days; Reason: Recheck today's complaints, Continuance of care, Re-evaluation by your physician. - Problem is new. - Symptoms have improved. Signatures: Dispatcher [employer] EDMS Savanna Torres RN RN aa1 Izabel Juarez RN RN ss Marinas, Patrick, MANUFACTURING DIRECTOR MANUFACTURING DIRECTOR pm1 Josiah Crawford MD MD tw4 Corrections: (The following items were deleted from the chart) 04/28 22:09 21:54 04/28/2019 21:54 Discharged to Home. Impression: Contusion of left front wall of aa1 thorax. Condition is Stable. Forms are Medication Reconciliation Form, Thank You Letter, Antibiotic Education, Prescription Opioid Use. Follow up: Emergency Department; When: As needed; Reason: Worsening of condition. Follow up: Private Physician; When: 2 - 3 days; Reason: Recheck today's complaints, Continuance of care, Re-evaluation by your physician. Problem is new. Symptoms have improved. pm1
--- NOTE | 2019-04-28 22:37 | RAD REPORT ---
EXAM DESCRIPTION: RAD - Ribs Left - 04/28/2019 9:37 pm CLINICAL HISTORY: PAIN COMPARISON: Chest Pa And Lat (2 Views) dated 04/28/2019 FINDINGS: The bones are osteopenic. Minimal fracture is seen involving the lateral aspect of the lef t tenth rib.
[2019-04-28 22:46] VITALS: BP 149/62; TEMP 98.7; O2SAT 96
== END 2019-04-28 22:09 | disposition home or self-care (01) ==
LOC: ER 19:46
DX: S20.212A Contusion of left front wall of thorax, initial encounter (principal); W19.XXXA Unspecified fall, initial encounter; Y93.89 Activity, other specified; Y92.89 Other specified places as the place of occurrence of the external cause; I10 Essential (primary) hypertension
CPT/HCPCS: 71046; 99283